=== PATIENT | male | born 1945 | race Caucasian/White ===

== ENCOUNTER 2021-09-23 08:57 | Outpatient (CLI) | payer MEDICARE, OTHER, SELFPAY ==
--- NOTE | ~2021-09-23 | CT_ITS ---
EXAMINATION: CT abdomen pelvis wo con EXAM DATE: 09/23/2021 09:18 INDICATION: Chronic kidney disease. TECHNIQUE: Spiral CT of the abdomen and pelvis was performed without contrast. Axial, coronal and sag ittal images were reviewed. The dose-length product (DLP) for this examination was 595.09 mGy-cm. T he exposure was tailored according to patient size (auto mA exposure control), and iterative reconstr uction (ASIR) was used as additional dose reduction technique. Comparison is made to prior examinatio n from 11/16/2018. FINDINGS: There is heterogeneous mass probably left adrenal origin measuring 6.7 x 5.7 cm (previously 4.6 x 4.2 cm in 2019. Surgical excision should be considered. There is no nephrolithiasis or hydrone phrosis. There is 1.6 cm left renal cyst. Nonspecific ill-defined regions of fat stranding in the deep aspect of the pelvis, presacral region a gain noted with mild progression. This could be infiltration with inflammatory cells but from unknown specific underlying etiology. Mild prostatomegaly. Small bilateral hydroceles. Some diffuse bladder wall thickening, could indicate chronic cystitis, unchanged. The spleen is upper limits of normal in size. Liver, pancreas, gallbladder are unremarkable. Gallblad jaron is unremarkable. No biliary obstruction. There is no retroperitoneal or pelvic lymphadenopathy. There is moderate scattered arteriosclerotic disease. Small umbilical fat-containing hernia. There are no findings to suggest appendicitis. The stomach and small bowel are unremarkable. There is expected amount of colonic stool. No free intraperitoneal gas. The heart is normal in size. T here are no pericardial or pleural effusions. The lung bases are unremarkable. There are no osteobl astic or osteolytic lesions identified. IMPRESSION: 1. Heterogeneous left adrenal 6.7 cm mass, interval increase in size. Benign and malignant adrenal t umor, or metastatic disease are considerations; consider surgical excision. 2. Progression of nonspecific ill-defined presacral, deep pelvic ill-defined fat stranding. 3. Mild prostatomegaly. Possible chronic cystitis. 4. No hydronephrosis. Reviewed, dictated and finalized at location A. 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 Heterogeneous left adrenal 6.7 cm mass, interval increase in size. Benign a nd malignant adrenal tumor, or metastatic disease are considerations; consider surgical excision. 2. Progression of nonspecific ill-defined presacral, deep pelvic ill-defined f at stranding. 3. Mild prostatomegaly. Possible chronic cystitis. 4. No hydronephrosis.
== END 2021-09-23 08:58 | disposition home or self-care (01) ==
PROVIDERS: PCP Family Medicine; Visit Provider Internal Medicine Nephrology
DX: N18.4 Chronic kidney disease, stage 4 (severe) (principal); E27.9 Disorder of adrenal gland, unspecified; N40.0 Benign prostatic hyperplasia without lower urinary tract symptoms
CPT/HCPCS: 74176

== ENCOUNTER 2023-05-30 10:41 | Outpatient (CLI) | payer MEDICARE, OTHER, SELFPAY ==
--- NOTE | ~2023-05-30 | MR_ITS ---
EXAMINATION: MR abdomen wo/w con INDICATION: Other specified disorders of the adrenal gland TECHNIQUE: Coronal SSFSE ARC, WATER:coronal LAVA-FLEX, Coronal 2D FIESTA FatSat, Axial SSFSE BH ARC, Axial 3D DualEcho BH, Axial SSFSE-IR, Axial DWI b=500, Axial 2D FIESTA FatSat, pre and dynamic postco ntrast Axial LAVA ARC, postcontrast Coronal In and Opposed phase LAVA FLEX COMPARISON: CT, 09/23/2021 CONTRAST: Multihance, 17 cc FINDINGS: The enlarged spleen measures 16 cm. The liver, pancreas, gallbladder, and right adrenal gla nd are normal. There is a 7.1 x 5.9 cm heterogeneous mass of the left adrenal gland. The mass demonst rates a ring of peripheral T1 hyperintensity and heterogeneous internal T2 signal. There is no apprec iable enhancement after contrast administration. Cysts of the kidneys measure up to 1.4 cm on the lef t. There are no pathologically enlarged abdominal lymph nodes. No dilated loops of bowel are evident. There is no free intraperitoneal fluid. IMPRESSION: 1. Left adrenal mass with slight increase in size which may be benign or malignant. In the absence of known malignancy, resection should be considered. 2. Splenomegaly. Reviewed, dictated and finalized at location B. IMPRESSION: 1. Left adrenal mass with slight increase in size which may be benign or malign ant. In the absence of known malignancy, resection should be considered. 2. Splenomegaly.
== END 2023-05-30 10:42 | disposition home or self-care (01) ==
PROVIDERS: PCP Family Medicine; Visit Provider Family Medicine
DX: E27.8 Other specified disorders of adrenal gland (principal); R16.1 Splenomegaly, not elsewhere classified
CPT/HCPCS: 74183; A9577

== ENCOUNTER 2023-06-15 16:17 | Outpatient (CLI) | payer MEDICARE, OTHER, SELFPAY ==
[2023-06-15 17:01] LABS: Hematocrit 30.2 % (42.0-52.0); Hemoglobin 9.5 g/dL (14.0-18.0); Immature Platelet Fraction Pct 11.3 % (0.9-11.2); Mean Corpuscular HGB Conc 31.5 g/dl (32-36); Mean Corpuscular Volume 104.9 fl (80-100); Mean Platelet Volume 11.3 fl (7.4-10.4); Platelet Count Result 77 k/mm3 (150-375); Red Blood Count 2.88 M/mm3 (4.6-6.20); Red Cell Distribution Width 15.4 % (11.5-14.5); White Blood Count 12.1 K/mm3 (4.5-10.0)
[2023-06-15 17:20] LABS: Alanine Aminotransferase 16 U/L (6-50); Albumin Level 4.5 g/dL (3.5-5.1); Alkaline Phosphatase 60 U/L (38-126); Anion Gap 9 mmol/L (8-16); Aspartate Amino Transferase 26 U/L (17-59); Bilirubin,Total 1.1 mg/dL (0.2-1.3); Blood Urea Nitrogen 23 mg/dL (9-20); Calcium 8.7 mg/dL (8.4-10.2); Carbon Dioxide 23 mmol/L (22-30); Chloride 105 mmol/L (98-107); Estimated Glomerular Filt Rate 26; Glucose 93 mg/dL (65-110); Lactate Dehydrogenase 327 U/L (120-246); Potassium 4.2 mmol/L (3.4-5.0); Sodium 137 mmol/L (137-145)
[2023-06-15 17:26] LABS: Iron 76 ug/dL (49-181)
[2023-06-15 17:28] LABS: Transferrin 164 mg/dL (206-381)
[2023-06-15 17:35] LABS: Band Neutrophils Percent 2 % (0-6); Basophils Absolute Manual 0.12 K/mm3 (0.0-0.1); Basophils Percent Manual 1 % (0-1); Lymphocytes Absolute Manual 1.57 K/mm3 (1.1-4.5); Monocytes Absolute Manual 1.69 K/mm3 (0.1-0.90); Monocytes Percent Manual 14 % (3-9); Neutrophils Absolute Manual 8.71 K/mm3 (1.3-6.7); Neutrophils Percent Manual 70 % (46-73); Platelet Estimate Decreased (Adequate); Schistocytes None Seen (NORMAL); Total Cells Counted 100
[2023-06-15 17:36] LABS: Anisocytosis 2+ (NORMAL); Hypochromasia 1+ (NORMAL); Percent Iron Saturation 30 % (20-50)
[2023-06-15 18:24] LABS: Folic Acid 9.1 ng/mL (2.76->20)
[2023-06-18 22:49] LABS: Methylmalonic Acid 272 nmol/L (87-318)
[2023-06-21 14:49] LABS: BCR/abl Prior Result Not Given
[2023-06-21 15:39] LABS: BCR/abl P190 Not Detected; BCR/abl P210 Not Detected
[2023-06-21 15:40] LABS: BCR/abl P190 Chg YES; BCR/abl P210 Chg YES
== END 2023-06-15 16:18 | disposition home or self-care (01) ==
LOC: ANHLAB 16:25
PROVIDERS: PCP Family Medicine; Visit Provider Internal Medicine Hematology & Oncology
DX: D72.829 Elevated white blood cell count, unspecified (principal); D64.9 Anemia, unspecified
CPT/HCPCS: 36415; 80053; 81206; 81207; 82607; 82728; 82746; 83540; 83550; 83615; 83921; 84466; 85025; 85055

== ENCOUNTER 2023-06-16 14:33 | Outpatient (CLI) | payer MEDICARE, OTHER, SELFPAY ==
[2023-06-16 15:11] LABS: Hematocrit 29.2 % (42.0-52.0); Hemoglobin 9.2 g/dL (14.0-18.0); Immature Platelet Fraction Pct 13.9 % (0.9-11.2); Mean Corpuscular HGB Conc 31.5 g/dl (32-36); Mean Corpuscular Hemoglobin 33.2 pg (26-34); Mean Corpuscular Volume 105.4 fl (80-100); Mean Platelet Volume 11.6 fl (7.4-10.4); Platelet Count Result 76 k/mm3 (150-375); Red Blood Count 2.77 M/mm3 (4.6-6.20); Red Cell Distribution Width 15.5 % (11.5-14.5); White Blood Count 12.5 K/mm3 (4.5-10.0)
[2023-06-16 15:32] LABS: Appearance Urine Clear (Clear); Bilirubin Urine Negative (Negative); Blood Urine 2+ (Negative); Color Urine Yellow (Yellow); Glucose Urine UA Negative (Negative); Ketones Urine Negative (Negative); Leukocyte Esterase Ur Negative LEU/UL (NEGATIVE); Nitrate Urine Negative (Negative); Protein Urine 2+ mg/dL (Negative); Specific Grav Ur >= 1.030 (1.001-1.035); Urobilinogen Urine 0.2 mg/dL (<2.0)
[2023-06-16 15:45] LABS: Creatinine Urine 203.5 mg/dL; Total Protein Urine Random 123 mg/dL
[2023-06-16 15:51] LABS: Albumin Level 4.4 g/dL (3.5-5.1); Anion Gap 11 mmol/L (8-16); Blood Urea Nitrogen 24 mg/dL (9-20); Calcium 8.9 mg/dL (8.4-10.2); Carbon Dioxide 24 mmol/L (22-30); Chloride 106 mmol/L (98-107); Estimated Glomerular Filt Rate 24; Glucose 106 mg/dL (65-110); Phosphorus 4.2 mg/dL (2.5-4.5); Sodium 141 mmol/L (137-145)
[2023-06-16 15:56] LABS: Parathyroid Intact 119.4 pg/mL (7.5-53.5)
[2023-06-16 16:14] LABS: Bacteria Urine None Seen /hpf; Hyaline Casts Urine Present /lpf; Need Manual Microscopic Reviewed; Non Pathogenic Casts >20; RBC Urine 0-2 /hpf (0-2); Squamous Epithelial Cell Urine Few /hpf (Few); WBC Urine 0-5 /hpf (0-3)
[2023-06-16 16:16] LABS: Erythrocyte Sedimentation Rate 30 mm/hr (0-20)
[2023-06-16 16:49] LABS: Add Urine Microscopic? YES
[2023-06-16 17:28] LABS: Complement C3 41 mg/dL (88-165)
[2023-06-16 17:53] LABS: Cortisol Random 9.48 ug/dL
[2023-06-19 15:04] LABS: Kappa\\Lambda Light Chains 2.26 (0.26-1.65)
[2023-06-21 17:17] LABS: Complement Total CH50 45 U/mL (31-60)
== END 2023-06-16 14:34 | disposition home or self-care (01) ==
LOC: ANHLAB 14:34
PROVIDERS: PCP Family Medicine; Visit Provider Internal Medicine Nephrology
DX: I48.91 Unspecified atrial fibrillation (principal); N18.4 Chronic kidney disease, stage 4 (severe)
CPT/HCPCS: 36415; 80069; 81001; 82533; 82570; 83883; 83970; 84156; 85027; 85055; 85652; 86038; 86160; 86162; 86334

== ENCOUNTER 2023-06-18 11:57 | Outpatient (NON) | payer MEDICARE, OTHER, SELFPAY ==
[2023-06-24 10:09] LABS: Protein,total, 24 Hr Ur 616 mg/24h
[2023-06-24 10:10] LABS: Albumin 19%; Creat 24 Hr 0.46; Pro/Creat Ratio 1333
[2023-06-24 10:11] LABS: ABN Prot Band 1 91
== END 2023-06-18 11:58 | disposition home or self-care (01) ==
PROVIDERS: PCP Family Medicine; Visit Provider Internal Medicine Nephrology
DX: N18.4 Chronic kidney disease, stage 4 (severe) (principal)
CPT/HCPCS: 86335

== ENCOUNTER 2023-06-30 02:39 | Day surgery (SDC) | payer MEDICARE, OTHER, SELFPAY ==
[2023-06-30] VITALS (7 sets, daily range): BP systolic 111–153; BP diastolic 62–88; PULSE 80–92; RESP 12–20; TEMP 36; O2SAT 99–100; BMI 25.4
--- NOTE | ~2023-06-30 | BM_ITS ---
EXAMINATION: CCL bone marrow asp w bx diag ORDER COMPLETED DATE: 06/30/2023 10:07 INDICATION: Leukocytosis TECHNIQUE: A time-out was performed to verify the patient's name, date of , and procedure to b e performed. The procedure including the risks and benefits was discussed with the patient. Risks dis cussed included bleeding, infection, nerve injury and allergic reaction. The patient understood the r isks and agreed to proceed. The skin overlying the right posterior iliac spine was prepped and draped in usual sterile fashion. Anesthetic was administered with 1% lidocaine subcutaneously. Moderate co nscious sedation was achieved with 50 mcg fentanyl IV. An 11 gauge needle was inserted into the right ilium with fluoroscopic guidance. Bone marrow was aspirated. An 8 gauge needle was then inserted int o the right ilium with fluoroscopic guidance. A core bone marrow biopsy was obtained. The needle was removed and the entry site was cleaned and dressed. There were no immediate complications. A total o f 154 fluoroscopic images were recorded. Fluoroscopy exposure time was 0.2 minutes. FINDINGS: Real-time fluoroscopy demonstrates the biopsy needle tip overlying the right posterior lonny c spine. IMPRESSION: 1. Successful fluoroscopic guided bone marrow aspiration. 2. Successful fluoroscopic guided bone marrow biopsy. Reviewed, dictated and finalized at location A.
[2023-06-30 08:13] LABS: Basophils Percent Auto 0.2 % (0.2-1.2); Eosinophils Absolute Auto 0.1 K/mm3 (0-0.3); Eosinophils Percent Auto 0.7 % (0-4.4); Hematocrit 30.7 % (42.0-52.0); Hemoglobin 9.9 g/dL (14.0-18.0); Immature Granulocyte Absolute 0.43 K/mm3 (0.00-0.031); Immature Granulocyte Percent A 3.4 % (0-0.5); Immature Platelet Fraction Pct 13.6 % (0.9-11.2); Lymphocytes Absolute Auto 3.17 K/mm3 (0.9-3.2); Lymphocytes Percent Auto 25.3 % (18.3-44.2); Mean Corpuscular HGB Conc 32.2 g/dl (32-36); Mean Corpuscular Hemoglobin 33.1 pg (26-34); Mean Corpuscular Volume 102.7 fl (80-100); Mean Platelet Volume 11.3 fl (7.4-10.4); Monocytes Absolute Auto 1.6 K/mm3 (0.1-0.6); Monocytes Percent Auto 12.5 % (2.6-8.5); Neutrophils Absolute Auto 7.2 K/mm3 (1.3-6.7); Neutrophils Percent Auto 57.9 % (45.5-73.1); Platelet Count Result 68 k/mm3 (150-375); Red Blood Count 2.99 M/mm3 (4.6-6.20); Red Cell Distribution Width 15.7 % (11.5-14.5); White Blood Count 12.5 K/mm3 (4.5-10.0)
[2023-06-30 08:22] LABS: INR 1.2; Prothrombin Time 16.3 Seconds (11.1-14.7)
[2023-06-30 08:42] LABS: Hypochromasia 1+ (NORMAL); Platelet Estimate Decreased (Adequate); Poikilocytosis 1+ (NORMAL)
[2023-06-30 08:43] LABS: Anisocytosis 1+ (NORMAL); Schistocytes Rare (NORMAL); Tear Drop Cells 1+ (NORMAL)
--- NOTE | 2023-06-30 09:26 | WPDMODSED ---
Moderate Sedation Note-Pt Data Patient Data Diagnosis: leukocytosis Present Complaint: leukocytosis Procedure to be performed/Plan: bone marrow biopsy Allergies Allergy/AdvReac Type Severity Reaction Status Date / Time No Known Allergies Allergy Verified 06/30/23 07:44 Home Medications Medication Instructions Recorded Confirmed Type levothyroxine 100 mcg tablet 100 mcg PO DAILY #90 tabs 05/18/23 06/30/23 Rx mecobalamin (vitamin B12) 500 mcg 500 mcg PO DAILY 06/16/23 06/30/23 History chewable tablet Sedation/Anesthesia: No previous sedation/anesthesia problems (including family history). [facility] Past Medical History Medical History Afib Anemia in chronic kidney disease GERD (gastroesophageal reflux disease) HTN (hypertension) Hypothyroidism Memory problem Stage 4 chronic kidney disease Surgical History Surgical History History of cardiac cath Family History Family History Mother Hypertension Family history of cardiovascular disease Father Family history of malignant neoplasm Social History Social History Smoking status: Never smoker Second hand tobacco smoke exposure: No Alcohol intake: current Alcohol use details: rare beer Substance use: never Substance use type: does not use Lack of Transportation: No Lack of Food: Never True Current Housing: I Have Housing Concerned About Future Housing: No Difficulty Paying Gas/Electric Bills: No Difficulty Paying for Meds: No Currently Unemployed: No Education: High School Diploma/GED Living arrangements: alone Occupation/Education: retired Gender identity (if verbalized by the patient): Male Sexual Orientation (if Verbalized by the Patient): Straight or Heterosexual Spiritual care concerns: No Mod Sed Physical Exam Physical Exam Pre Procedural Exam: Normal: Appearance, Eyes, Neck, Throat, Lungs, Heart Rate and Heart Rhythm Hours since solid foods: 9 Hours since liquid intake: 9 Mallampati Classification: class II Internal Medicine - PN: Obj Da Vital Signs Vital Signs: Vital Signs - 24 hr 06/30/23 07:55 Temperature 96.8 F L Pulse Rate 91 Respiratory Rate 16 Blood Pressure 152/69 H Pulse Oximetry 100 Oxygen Delivery Room Air Labs 06/30/23 08:01 Labs: Laboratory Results - last 24 hr 06/30/23 08:01 WBC 12.5 H RBC 2.99 L Hgb 9.9 L Hct 30.7 L MCV 102.7 H MCH 33.1 MCHC 32.2 RDW 15.7 H Plt Count 68 L MPV 11.3 H Immature Gran % (Auto) 3.4 H Neut % (Auto) 57.9 Lymph % (Auto) 25.3 Churchill % (Auto) 12.5 H Eos % (Auto) 0.7 Baso % (Auto) 0.2 Lymph # (Auto) 3.17 Churchill # (Auto) 1.6 H Eos # (Auto) 0.1 Baso # (Auto) 0.0 Abs Immat Gran (auto) 0.43 H Absolute Neuts (auto) 7.2 H Absolute Nucleated RBC 0.0 Nucleated RBC % 0.0 Platelet Estimate Decreased % Immature Plt Fraction 13.6 H Hypochromasia 1+ Poikilocytosis 1+ Anisocytosis 1+ Tear Drop Cells 1+ Schistocytes Rare PT 16.3 H INR 1.2 ASA Classification/Sedation ASA Classification/Sedation ASA Class: II Emergent: No Risks: Risks, benefits and alternatives explained and patient/family accepted plan for sedation. Patient re-evaluated immediately prior to sedation.
== END 2023-06-30 11:25 | disposition home or self-care (01) ==
PROVIDERS: PCP Family Medicine; Referring Provider Internal Medicine Hematology & Oncology; Visit Provider Radiology Diagnostic Radiology
DX: C92.10 Chronic myeloid leukemia, BCR/ABL-positive, not having achieved remission (principal); E03.9 Hypothyroidism, unspecified; I12.9 Hypertensive chronic kidney disease with stage 1 through stage 4 chronic kidney disease, or unspecified chronic kidney disease; N18.4 Chronic kidney disease, stage 4 (severe)
CPT/HCPCS: 36415; 38222; 85025; 85055; 85610; 88184; 88185; 88189; 88305; 88311; 88313; J1642; J2250; J3010; J7040

== ENCOUNTER 2023-07-04 10:22 | Outpatient (CLI) | payer MEDICARE, OTHER, SELFPAY ==
--- NOTE | ~2023-07-04 | US_ITS ---
EXAMINATION: US renal BI DATE: 07/04/2023 11:56 INDICATION: N18.4 - Chronic kidney disease, stage 4 (severe) TECHNIQUE: Multiple grayscale and Doppler ultrasound images of the kidneys were obtained. COMPARISON: MR abdomen 05/30/2023; CT abdomen 09/23/2021 and 11/16/2018. FINDINGS: The right kidney measures 10.0 x 5.7 x 5.2 cm. The left kidney measures 10.1 x 4.5 x 5.8 cm. The kidn eys demonstrate slightly increased parenchymal echogenicity, hypoechoic appearing renal pyramids, and and cortical thinning. 1.4 cm left upper pole simple cyst. There is no hydronephrosis. The bladder i s partially filled, with wall thickening, likely secondary to outlet obstruction. 2 mm echogenicity w ith twinkle artifact at the distal portion of the right UVJ. Incidental note of a 5.8 cm left adrenal mass. Prostatomegaly. Lobular hypoechoic areas adjacent to the prostate. IMPRESSION: Cortical atrophy and evidence of medical renal disease. No hydronephrosis. 2 mm calcification adjacent to the right UVJ may represent a small distal UVJ stone or bladder calcif ication. 5.8 cm left adrenal mass, prior recommendations are unchanged. Lobular hypoechoic areas adjacent to the prostate, may be related to prominent or inflamed seminal ve sicles and/or the nonspecific deep pelvic fat inflammatory change described in the prior CTs. Reviewed, dictated and finalized at [facility]. IMPRESSION: Cortical atrophy and evidence of medical renal disease. No hydronephrosis. 2 mm calcification adjacent to the right UVJ may represent a small distal UVJ s tone or bladder calcification. 5.8 cm left adrenal mass, prior recommendations are unchanged. Lobular hypoechoic areas adjacent to the prostate, may be related to prominent or inflamed seminal vesicles and/or the nonspecific deep pelvic fat inflammator y change described in the prior CTs.
== END 2023-07-04 10:23 | disposition home or self-care (01) ==
PROVIDERS: PCP Family Medicine; Visit Provider Internal Medicine Nephrology
DX: D35.02 Benign neoplasm of left adrenal gland (principal); N18.4 Chronic kidney disease, stage 4 (severe)
CPT/HCPCS: 76775

== ENCOUNTER 2023-08-19 15:14 | Outpatient (CLI) | payer MEDICARE, OTHER, SELFPAY ==
[2023-08-19 15:48] LABS: Hematocrit 30.9 % (42.0-52.0); Hemoglobin 9.8 g/dL (14.0-18.0); Immature Platelet Fraction Pct 10.1 % (0.9-11.2); Mean Corpuscular HGB Conc 31.7 g/dl (32-36); Mean Corpuscular Hemoglobin 32.8 pg (26-34); Mean Corpuscular Volume 103.3 fl (80-100); Mean Platelet Volume 11.7 fl (7.4-10.4); Platelet Count Result 107 k/mm3 (150-375); Red Blood Count 2.99 M/mm3 (4.6-6.20); Red Cell Distribution Width 16.7 % (11.5-14.5); White Blood Count 10.8 K/mm3 (4.5-10.0)
[2023-08-19 15:59] LABS: Albumin Level 4.6 g/dL (3.5-5.1); Anion Gap 10 mmol/L (8-16); Blood Urea Nitrogen 22 mg/dL (9-20); Calcium 9.3 mg/dL (8.4-10.2); Carbon Dioxide 25 mmol/L (22-30); Chloride 105 mmol/L (98-107); Estimated Glomerular Filt Rate 24; Glucose 83 mg/dL (65-110); Phosphorus 4.8 mg/dL (2.5-4.5); Potassium 4.7 mmol/L (3.4-5.0); Sodium 140 mmol/L (137-145)
[2023-08-19 16:01] LABS: Creatinine Urine 120.3 mg/dL; Total Protein Urine Random 131 mg/dL; Ur Ttl Prot Creatinine Ratio 1.09 mg/mg (0-0.20)
[2023-08-19 16:05] LABS: Complement C3 48 mg/dL (88-165)
[2023-08-19 16:10] LABS: Appearance Urine Clear (Clear); Bacteria Urine None Seen /hpf; Bilirubin Urine Negative (Negative); Blood Urine 1+ (Negative); Color Urine Yellow (Yellow); Glucose Urine UA Negative (Negative); Ketones Urine Negative (Negative); Leukocyte Esterase Ur Negative LEU/UL (NEGATIVE); Need Manual Microscopic Reviewed; Nitrate Urine Negative (Negative); Protein Urine 2+ mg/dL (Negative); Specific Grav Ur 1.018 (1.001-1.035); Squamous Epithelial Cell Urine None seen /hpf (Few); WBC Urine 0-5 /hpf (0-3); pH Urine 6.5 (5.0-9.0)
[2023-08-19 16:11] LABS: Add Urine Microscopic? YES
[2023-08-22 20:49] LABS: Complement Total CH50 50 U/mL (31-60)
== END 2023-08-19 15:15 | disposition home or self-care (01) ==
PROVIDERS: Visit Provider Internal Medicine Nephrology
DX: I48.91 Unspecified atrial fibrillation (principal); N18.32 Chronic kidney disease, stage 3b
CPT/HCPCS: 36415; 80069; 81001; 82570; 83970; 84156; 85027; 85055; 86160; 86162

== ENCOUNTER 2023-08-25 15:58 | Outpatient (CLI) | payer MEDICARE, OTHER, SELFPAY ==
[2023-09-01 14:53] LABS: Renin 2.02 ng/mL/h (0.25-5.82)
== END 2023-08-25 15:59 | disposition home or self-care (01) ==
PROVIDERS: PCP Family Medicine; Visit Provider Internal Medicine Nephrology
DX: E27.8 Other specified disorders of adrenal gland (principal)
CPT/HCPCS: 36415; 82088; 84244

== ENCOUNTER 2023-08-27 11:18 | Outpatient (NON) | payer MEDICARE, OTHER, SELFPAY ==
[2023-09-01 06:59] LABS: Metanephrine, Total Urine 496 mcg/24 h (224-832); Metanephrine, Urine 132 mcg/24 h (90-315); Normetanephrine, Urine 364 mcg/24 h (122-676)
== END 2023-08-27 11:19 | disposition home or self-care (01) ==
PROVIDERS: PCP Family Medicine; Visit Provider Internal Medicine Nephrology
DX: E27.8 Other specified disorders of adrenal gland (principal)
CPT/HCPCS: 82088; 82530; 83835

== ENCOUNTER 2024-09-19 15:36 | Outpatient (CLI) | payer MEDICARE, OTHER, SELFPAY ==
[2024-09-19 16:40] LABS: Albumin Level 4.6 g/dL (3.5-5.1); Anion Gap 8 mmol/L (4-12); Blood Urea Nitrogen 14 mg/dL (9-20); Calcium 9.1 mg/dL (8.4-10.2); Carbon Dioxide 30 mmol/L (22-30); Chloride 105 mmol/L (98-107); Estimated Glomerular Filt Rate 26; Glucose 93 mg/dL (65-110); Phosphorus 3.3 mg/dL (2.5-4.5); Potassium 3.6 mmol/L (3.4-5.0); Sodium 143 mmol/L (137-145)
[2024-09-19 18:28] LABS: Creatinine Urine 212.3 mg/dL; Total Protein Urine Random 101 mg/dL; Ur Ttl Prot Creatinine Ratio 0.48 mg/mg (0-0.20)
== END 2024-09-19 15:37 | disposition home or self-care (01) ==
LOC: ANHLAB 15:39
PROVIDERS: PCP Family Medicine; Visit Provider Internal Medicine Nephrology
DX: N18.32 Chronic kidney disease, stage 3b (principal); E11.22 Type 2 diabetes mellitus with diabetic chronic kidney disease; E21.1 Secondary hyperparathyroidism, not elsewhere classified
CPT/HCPCS: 36415; 80069; 82306; 82570; 84156

== ENCOUNTER 2024-12-27 09:06 | Outpatient (CLI) | payer MEDICARE, OTHER, SELFPAY ==
[2024-12-27 09:23] LABS: Blood Urea Nitrogen 14 mg/dL (8-26); Carbon Dioxide 23 mmol/L (22-30); Chloride 101 mmol/L (98-109); Estimated Glomerular Filt Rate 21; Glucose 93 mg/dL (70-105); Ionized Calcium (POC) 1.23 mmol/L (1.11-1.31); Potassium 3.6 mmol/L (3.5-4.9); Sodium 142 mmol/L (138-146)
[2024-12-27 09:25] LABS: Basophils Percent Auto 0.2 % (0.2-1.2); Eosinophils Absolute Auto 0.3 K/mm3 (0-0.3); Eosinophils Percent Auto 1.5 % (0-4.4); Hematocrit 35.4 % (42.0-52.0); Hemoglobin 11.7 g/dL (14.0-18.0); Immature Granulocyte Percent A 2.9 % (0-0.5); Immature Platelet Fraction Pct 12.1 % (0.9-11.2); Lymphocytes Absolute Auto 1.53 K/mm3 (0.9-3.2); Lymphocytes Percent Auto 7.5 % (18.3-44.2); Mean Corpuscular HGB Conc 33.1 g/dl (32-36); Mean Corpuscular Hemoglobin 31.5 pg (26-34); Mean Corpuscular Volume 95.2 fl (80-100); Mean Platelet Volume 11.3 fl (7.4-10.4); Monocytes Absolute Auto 6.7 K/mm3 (0.1-0.6); Monocytes Percent Auto 33.1 % (2.6-8.5); Neutrophils Absolute Auto 11.1 K/mm3 (1.3-6.7); Neutrophils Percent Auto 54.8 % (45.5-73.1); Platelet Count Result 91 k/mm3 (150-375); Red Blood Count 3.72 M/mm3 (4.6-6.20); Red Cell Distribution Width 16.8 % (11.5-14.5); White Blood Count 20.3 K/mm3 (4.5-10.0)
[2024-12-27 09:27] LABS: Platelet Estimate Decreased (Adequate)
[2024-12-27 09:28] LABS: Schistocytes None Seen
[2024-12-27 09:29] LABS: Anisocytosis 1+; Atypical Lymphocytes Present
--- OUTSIDE RECORDS SUMMARY | 2024-12-27 09:30 | XMS_ITS | Clinical Summary ---
Author Organization [facility] [employer] Address [address] [place] [address] Care Team Providers Care Blind Eyeletter Name Role Phone Kelvin Rosado MD Primary Care Provider [phone] Source Comments [facility] [employer]non-owned Affiliates and Associated Physician Practices is amultiple site organization consisting of ambulatory clinics and hospital sitesin [place], [place], [place] and [place]. This disclosure is being madepursuant to the Care Everywhere program and may not contain all information available regarding this patient. Last updated 18.[employer] Medications * Be aware that medications may not be up to date on this document. Alwaysverify current medications with the patient. levothyroxine (SYNTHROID) 75 MCG tablet 06/29/2016 Active warfarin (COUMADIN) 5 MG tablet 06/29/2016 Active digoxin (LANOXIN) 0.25 MG tablet 06/29/2016 Acti ve calcitriol (ROCALTROL) 0.25 MCG capsule 06/29/2016 Active omeprazole (PRILOSEC) 20 MG capsule 06/29/2016 Active metoprolol tartrate (LOPRESSOR) 25 MG tablet 06/29/2016 Active quinapril (ACCUPRIL) 40 MG tablet 06/29/2016 Active Social History Tobacco Use Types Packs/Day Years Used Date Smoking Tobacco: Never Alcohol Use Standard Drinks/Week Comments Yes 0 (1 standard drink = 0.6 oz pur e alcohol) Sex and Gender Information Value Date Recorded Sex Assigned at Not on file 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 Gender Identity Not on file Sexual Orientation Not on file Last Filed Vital Signs Vital Sign Reading Time Taken Comments Blood Pressure 115/86 09/28/2016 8:47 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 Pulse 81 09/28/2016 8:47 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 Temperature - - Respiratory Rate - - Oxygen Saturation 96% 09/28/2016 8:47 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 Inhaled Oxygen Concentration - - Weight 102.1 kg (225 lb) 09/28/2016 7:16 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 Height 185.4 cm (6' 1 ) 09/28/2016 7:16 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 Body Mass Index 29.69 09/28/2016 7:16 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 Plan of Treatment Health Maintenance Due Date Last Done Comments MEDICARE AWV 12 MONTHS 1945 DTAP/TDAP/TD VACCINES (1 - Tdap) 1962 PNEUMOCOCCAL VACCINE 50+ (1 of 1 - PCV) 1993 ZOSTER VACCINE (1 of 2) 1993 Respiratory Syncytial Virus (RSV) Vaccine Pt: or over 60 yrs (1 - 1-dose 75+ series) 2018 COVID-19 VACCINE ( - 2023-2 5 season) 2024 DEPRESSION SCREENING 09/12/2024 INFLUENZA VACCINE (Season Ended) 2025 HEPATITIS B VACCINE Aged Out No longe r eligible based on patient's age to complete this topic HIB VACCINE Aged Out No longer eligi ble based on patient's age to complete this topic HPV VACCINE Aged Out No longer eligi ble based on patient's age to complete this topic MENINGOCOCCAL (Group B) VACC INE SHARED DECISION-MAKING Aged Out No longer eligibl e based on patient's age to complete this topic MENINGOCOCCAL GROUPS A/C/Y/W VACCINE Aged Out No longer eligible b ased on patient's age to complete this topic Insurance [facility] MEDICARE Care Teams Blind Eyeletter Relationship Specialty Start Date End Date Kelvin Rosado MD [address] [facility] [place] [address] PCP - General 07/01/16
--- OUTSIDE RECORDS SUMMARY | 2024-12-27 09:30 | XMS_ITS | Clinical Summary ---
Author Organization [facility] [facility] Address [address] [place] [address] Care Team Providers Care Bait Tier Name Role Phone Pollo Lindquist MD Primary Care Provider [phone] Allergies No known active allergies Medications levothyroxine 88 mcg tablet Take 100 mcg by mouth daily. 06/11/2021 Active cyanocobalamin 1,000 mcg Tablet Take 500 mcg by mouth daily. Active Cholecalciferol , Vitamin D3, 50 mcg (2,000 unit) Capsule Take by mouth. Active ondansetron (ZOFRAN ODT) 8 mg Tablet, Rapid Dissolve Dissolve 1 tablet on top of tongue then swallow with saliva every 8 hours as needed for nausea or vomiting 5 Tablet 06/28/2024 Active galantamine (RAZADYNE ER) 8 mg Extended Release 24 hour capsule Take 8 mg by mouth daily. 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) from Last 3 Months Family History Relation Name Status Comments Brother Alive Daughter Alive Father Mother Social History Tobacco Use Types Packs/Day Years Used Date Smoking Tobacco: Never Smokeless Tobacco: Never Tobacco Cessation:Counseling Given: Not Answered Alcohol Use Standard Drinks/Week Comments Not Currently 0 (1 standard drink = 0.6 oz pur e alcohol) Sex and Gender Information Value Date Recorded Sex Assigned at Not on file 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 Gender Identity Not on file Sexual Orientation Not on file Last Filed Vital Signs Vital Sign Reading Time Taken Comments Blood Pressure 69/42 12/27/2024 9:29 AM CDT Pulse 90 12/27/2024 9:29 AM CDT Temperature 36.1 C (97 F) 12/27/2024 9:29 AM CDT Respiratory Rate 15 12/27/2024 9:29 AM CDT Oxygen Saturation 98% 12/27/2024 9:29 AM CDT Inhaled Oxygen Concentration - - Weight 79.5 kg (175 lb 3.2 oz) 12/27/2024 9:29 A M CDT Height 182.9 cm (6') 06/15/2023 3:12 PM CDT Body Mass Index 23.76 06/15/2023 3:12 PM CDT Plan of Treatment Upcoming Encounters Date Type Department Care Team (Late st Contact Info) Description 12/27/2024 9:45 AM CDT Office Visit [facility] Oncology and Hematology [facility] [address] [facility] [address] [place] [address] Kole Hermosillo MD [address] [facility] [address] [place] [address] Arrived Health Maintenance Due Date Last Done Comments DTAP/TDAP/TD VACCINES (1 - Tdap) 1962 PNEUMOCOCCAL VACCINE 50+ YEA RS (1 of 2 - PCV) 1962 Traditional Medicare (ACO) A nnual Wellness Visit 1962 ZOSTER VACCINE (1 of 2) 1962 RSV VACCINE (60+ or ) (1 - 1-dose 75+ series) 2018 INFLUENZA VACCINE Completed 07/19/2024, , 05/13/2021 Insurance MEDICARE PART A AND B [employer] [address] Care Teams Bait Tier Relationship Specialty Start Date End Date Pollo Lindquist MD [address] [place] [id number] PCP - General Family Practice 06/15/23
--- OUTSIDE RECORDS SUMMARY | 2024-12-27 09:31 | XMS_ITS | Referral Summary ---
Author Organization [facility] [address] Address [address] [place] [address] Care Team Providers Care Delivery Merchandiser Name Role Phone Pollo Lindquist MD Primary Care Provider Encounters Date Type Department Care Team Description 12/25/2024 Results Follow-Up [facility] Diagnostic [address] Advanced Medicine 6th [place] [address] [place] [address] Julia Mendoza MD PhD 12/21/2024 Telephone [facility] Memory Diagnostic [address] First Floor [address] [place] [address] Ana M Copeland, RMA Medication 12/19/2024 7:45 PM CDT Lab [facility] ([facility]) [address] [place] [phone] Memory loss 12/19/2024 4:00 PM CDT Office Visit [facility] [address] [place] [address] Medicine 6th [place] [address] [place] [address] Julia Mendoza MD PhD Alzheimer's disease (HCC) (Primary Dx) 12/07/2024 Orders Only [facility] Scanning, Provider 12/05/2024 Orders Only [facility] Scanning, Provider 10/23/2024 Telephone [facility] ([facility]) [address] [place] [address] Shayla Matos, 10/19/2024 Telephone [facility] [address] [facility] First Floor [address] [place] [address] NunoSaul napier, ROLLING MILL PLUGGER 10/17/2024 Telephone [facility] [address] [facility] First Floor [address] [place] [address] Ana M Copeland Nitin, A 10/17/[address] [facility] [place] [address] [facility] [address] Floor [address] [place] [address] Parr Sandravaina, A 09/28/2024 Orders Only [facility] Scanning, Provider from Last 3 Months Allergies No known active allergies Medications cyanocobalamin (Vitamin B-12) 500 mcg tabletIndicatio ns:Prevention of Vitamin B12 Deficiency Take 1 tablet (500 mcg total) by mouth daily Active cholecalciferol (D3-2000) 2000 unit capsule 3 Active levothyroxine (SYNTHROID) 100 mcg tablet Take 1 tablet (100 mcg total) by mouth daily 4 Active galantamine ER (RAZADYNE ER) 16 mg 24 hr capsuleIndicati ons:Mild to Moderate Alzheimer's Type Dementia Take 1 capsule (16 mg total) by mouth daily with breakfast 30 capsule 3 5 10/14/19 26 Active Active Problems Problem Noted Date Diagnosed Date 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 Because of the size of the mass and increase in size between 2019 in 2021, will refer patient to Urology for consideration of either adrenalectomy or percutaneous biopsy. Chronic atrial fibrillation 07/04/2018 Social History Tobacco Use Types Packs/Day Years Used Date Smoking Tobacco: Never Tobacco Cessation:Counseling Given: Not Answered Alcohol Use Standard Drinks/Week Comments Yes 0 (1 standard drink = 0.6 oz pur e alcohol) Sex and Gender Information Value Date Recorded Sex Assigned at Not on file Legal Sex Male 1:59 AM POLICE CHIEF DEPUTY Gender Identity Not on file Sexual Orientation Not on file Last Filed Vital Signs Vital Sign Reading Time Taken Comments Blood Pressure 155/87 12/19/2024 3:27 PM CDT Pulse 120 12/19/2024 3:27 PM CDT Temperature - - Respiratory Rate 14 11/03/2021 12:15 PM POLICE CHIEF DEPUTY Oxygen Saturation 96% 07/07/2021 1:05 PM CDT Inhaled Oxygen Concentration - - Weight 80.7 kg (178 lb) 12/19/2024 3:27 PM CDT Height 182.9 cm (6') 12/19/2024 3:27 PM CDT Body Mass Index 24.14 12/19/2024 3:27 PM CDT Plan of Treatment Not on file Procedures Procedure Name Priority Date/Time Associated Diagnosis Comments VITAMIN B12 Routine 12/19/2024 5:42 PM CDT Memory loss METHYLMALONIC ACID, SERUM Routine 12/19/2024 5:42 PM CDT Memory loss TSH Routine 12/19/2024 5:42 PM CDT Memory loss RPR Routine 12/19/2024 5:42 PM CDT Memory loss SCAN - LABS 12/07/2024 4:58 PM CDT SCAN - LABS 12/05/2024 4:58 PM CDT SCAN - LABS 09/28/2024 4:59 PM POLICE CHIEF DEPUTY from Last 3 Months Results * Methylmalonic acid, serum (12/19/2024 5:42 PM CDT) MMA 0.24 <=0.40 nmol/mL [place] ref Lab Comment: ADDITIONAL INFORMATION This test was developed and its performance characteristics determined by [facility] in a manner consistent with CLIA requirements. This test has not been cleared or approved by the U.S. Food and Drug Administration. Test Performed by: [address] [address] Wallpaper Hanger Helper: Elise Lacy Ph.D.; CLIA# [id number] Blood 12/19/2024 5:42 PM CDT 12/19/2024 7:56 PM CDT Narrative [facility] - 12/25/2024 8:48 AM CDT sent 1.0 ml serum us Julia Mendoza MD PhD LAB BLOOD ORDERABLE S Final Result Performing Organization Address City/[facility]/ZIP Co de Phone Number [facility] Department [place] [address] [place] ref Lab * RPR Blood (12/19/2024 5:42 PM CDT) Pathologist [facility] RPR Nonreactive Nonreactive Blood 12/19/2024 5:42 PM CDT 12/19/2024 6:32 PM CDT us Julia Mendoza MD PhD LAB MICROBIOLOGY - GENERAL ORDERABLES Final Result Performing Organization Address [facility] Co de Phone Number [facility] [place] [address] * TSH (12/19/2024 5:42 PM CDT) [facility] Thyroid Stimulating Hormone 2.04 0.30 - 4.20 mcIUnit/mL Blood 12/19/2024 5:42 PM CDT 12/19/2024 6:32 PM CDT us Julia Mendoza MD PhD LAB BLOOD ORDERABLE S Final Result Performing Organization Address City/[facility] Co de Phone Number [facility] [place] [address] * (ABNORMAL) Vitamin B12 (12/19/2024 5:42 PM CDT) Vitamin B12 1,806(H) 230 - 1,250 pg/mL Blood 12/19/2024 5:42 PM CDT 12/19/2024 6:32 PM CDT us Julia Mendoza MD PhD LAB BLOOD ORDERABLE S Final Result [facility] Department [place] [address] * SCAN - LABS (12/07/2024 4:58 PM CDT) us Provider Scanning Final Result * SCAN - LABS (12/05/2024 4:58 PM CDT) us Provider Scanning Final Result * SCAN - LABS (09/28/2024 4:59 PM POLICE CHIEF DEPUTY) us Provider Scanning Final Result from Last 3 Months Insurance [place] [address] [place] [address] MEDICARE [place]IC[place] [address] Care Teams Delivery Merchandiser Relationship Specialty Start Date End Date Pollo Lindquist MD [address] [place] [address] PCP - General Family Medicine 03/27/24
--- OUTSIDE RECORDS SUMMARY | 2024-12-27 09:31 | XMS_ITS | Encounter Summary ---
Author Organization [facility] [employer] Address [address] [place] [address] Care Team Providers Care Life Skills Trainer Name Role Phone Pollo Lindquist MD Primary Care Provider [phone] Encounter Details Date Type Department Care Team ([facility] Contact Info) Description 12/24/2024 Orders Only [facility] Oncology and [facility] [address] [place] [phone] Kole Hermosillo MD [address] [place] [address] [address] [place] [phone] 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) Social History Tobacco Use Types Packs/Day Years Used Date Smoking Tobacco: Never Smokeless Tobacco: Never Alcohol Use Standard Drinks/Week Comments Not Currently 0 (1 standard drink = 0.6 oz pur e alcohol) Sex and Gender Information Value Date Recorded Sex Assigned at Not on file Legal Sex Male 1:27 PM CUSTOMER SERVICE SUPERVISOR Gender Identity Not on file Sexual Orientation Not on file documented as of this encounter Plan of Treatment Upcoming Encounters Date Type Department Care Team (Late Contact Info) Description 12/27/2024 9:45 AM CDT Office Visit [facility] Oncology and Hematology [facility] [address] [place] [address] Kole Hermosillo MD [address] [place] [address] [address] [place] [phone] Arrived documented as of this encounter Visit Diagnoses Diagnosis 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
--- OUTSIDE RECORDS SUMMARY | 2024-12-27 09:31 | XMS_ITS | Encounter Summary ---
Author Organization [facility] Address [address] [place] [address] Phone Care Team Providers Care Quality Coordinator Name Role Phone Pollo Lindquist MD Primary Care Provider [phone] Encounter Details Date Type Department Care Team (Late st Contact Info) Description 12/25/2024 Results Follow-Up [facility] Memory Diagnostic Center [address] [facility] 6th [place] [address] [place] [address] Julia Mendoza MD PhD [address] [facility] [address] [place] [address] Social History Tobacco Use Types Packs/Day Years Used Date Smoking Tobacco: Never Alcohol Use Standard Drinks/Week Comments Yes 0 (1 standard drink = 0.6 oz pur e alcohol) Sex and Gender Information Value Date Recorded Sex Assigned at Not on file Legal Sex Male 1:59 AM KIER TENDER Gender Identity Not on file Sexual Orientation Not on file documented as of this encounter Miscellaneous Notes * Result Encounter Note - Julia Mendoza MD PhD - 12/25/2024 5:19 PM CDT Reversible dementia labs normal (B12, MMA, TSH, RPR) documented in this encounter Plan of Treatment Not on file documented as of this encounter Visit Diagnoses Not on filedocumented in this encounter Care Teams Quality Coordinator Relationship Specialty Start Date End Date Pollo Lindquist MD [address] [place] [address] PCP - General Family Medicine 03/27/24 documented as of this encounter
--- OUTSIDE RECORDS SUMMARY | 2024-12-27 09:31 | XMS_ITS | Encounter Summary ---
Author Organization [facility] Address [address] [place] [address] Care Team Providers Care Insurance Claim Approver Name Role Phone Kelvin Rosado MD Primary Care Provider [phone] Encounter Details Date Type Department Care Team (Late st Contact Info) Description 06/30/2023 Lab Requisition [facility] - Pathology Lab [address] [place] [address] Steve Kaba MD [address] [place] [address] Immunodeficiency, unspecified; Elevated white blood cell count, unspecified Social History Tobacco Use Types Packs/Day Years Used Date Smoking Tobacco: Never Alcohol Use Standard Drinks/Week Comments Yes 0 (1 standard drink = 0.6 oz pur e alcohol) Sex and Gender Information Value Date Recorded Sex Assigned at Not on file Legal Sex Male 5:41 PM SURVEILLANCE SENSOR OFFICER Gender Identity Not on file Sexual Orientation Not on file documented as of this encounter Plan of Treatment Not on file documented as of this encounter Procedures Procedure Name Priority Date/Time Associated Diagnosis Comments FLOW CYTOMETRY BONE MARROW Routine 06/30/2023 9:00 AM CDT Immunodeficiency, unspecified (CMS/HCC) Elevated white blood cell count, unspecified documented in this encounter Results * FLOW CYTOMETRY BONE MARROW (06/30/2023 9:00 AM CDT) Case Report Flow Cytometry Case: [id number] Authorizing Provider: Alek Kaba MD Collected: 06/30/2023 09:00 AM Ordering Location: [facility] Pathology Lab Received: 06/30/2023 12:29 PM Pathologist: Fidencio Espinoza MD Specimen: Bone Marrow 06/30/2023 2:02 PM [facility] PATHOLOGY LAB Final Diagnosis Bone marrow, flow cytometric immunophenotypic analysis: - No evidence of non-Hodgkin lymphoma or high-grade myeloid neoplasm. - See interpretation. Correlation with clinical findings, the concurrent bone marrow core biopsy, and relevant cytogenetic/molecu lar studies is required. 06/30/2023 2:02 PM [facility] PATH[facility] Flow Cytometry Interpretation Viability: 91% Lymphocytes (4%): B-cells: polytypic, kappa:lambda ratio 2:1 T-cells: no immunophenotypic aberrancy detected Blasts in the dimCD45 gate (2% all events) by CD34 co-expression are detected, 0.6% of all events, express CD13 and CD33. A bone marrow aspirate smear prepared from the flow cytometry specimen has been reviewed for quality audit representative purposes. 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 06/30/2023 2:02 PM [facility] Client Specimen ID # [id number] 06/30/2023 2:02 PM [facility] Number of markers 10 were performed. A-2 Flow CD10 A-3 Flow CD13 A-5 Flow CD20 A-1 Flow CD5 A-4 Flow CD19 A-6 Flow CD33 A-7 Flow CD34 A-8 Flow CD45 A-9 [place]+CD19+ A-10 Lambda+CD19+ 06/30/2023 2:02 PM [facility] Pathologist Location at [facility] 06/30/2023 2:02 PM [facility] PATH[facility] LAB Disclaimer Test performed at [facility], [address] [place] [address], [address]. *The established laboratory minimum viability is 70%. Values below the minimum may result in the failure to find an abnormal population of cells. This test was developed and its performance characteristics determined by the Flow Cytometry Laboratory. It has not been cleared by the [place] Food and Drug Administration (FDA). The FDA has determined that such clearance or approval is not necessary. This test is used for clinical purposes. It should not be regarded as investigational or for research. This laboratory is regulated under the Clinical Laboratory Improvement Amendments of 1998 (CLIA) as a qualified to perform high complexity clinical testing. 06/30/2023 2:02 PM CDT [facility] PATH[facility]Y [facility] Embedded Images 2:02 PM CDT [facility] Pathology/Cytolo gy BONE MARROW SPECIMEN / Unknown 06/30/2023 9:00 AM CDT 06/30/2023 12:29 PM CDT Steve Kaba MD LAB - PATHOLOGY/CYT OLOGY ORDERABLES Final Result Performing Organization Address City/[facility] de Phone Number [facility] PATHOLOGY LAB [address] [phone] documented in this encounter Visit Diagnoses Diagnosis Immunodeficiency, unspecified (HCC) Elevated white blood cell count, unspecified documented in this encounter Care Teams Insurance Claim Approver Relationship Specialty Start Date End Date Kelvin Rosado MD [address] [facility] [place] [address] PCP - General 07/01/16 documented as of this encounter
--- OUTSIDE RECORDS SUMMARY | 2024-12-27 09:31 | XMS_ITS | Clinical Summary ---
Author Organization [facility] [address] Address [address] [place] [address] Care Team Providers Care Commercial Collector Name Role Phone Pollo Lindquist MD Primary Care Provider [phone] Allergies No known active allergies Medications cyanocobalamin [...] 11/03/2021 Assessment & Plan (11/03/2021 4:49 PM HYDRATE CONTROL TENDER): Although there is no clear evidence of adrenal hormonal overproduction, as per review of systems or physical examination, will request laboratory hormonal workup, including 24 hour free metanephrines Also will check aldosterone, renin and cortisol levels. Because of the size of the mass and increase in size between 2018 in 2021, will refer patient to Urology for consideration of either adrenalectomy or percutaneous biopsy. Chronic atrial fibrillation 07/04/2018 Encounters Date Type Department Care Team Description 12/25/2024 Results Follow-Up [facility] [address] [facility] Advanced Medicine 6th [place] [address] [place] [address] Julia Mendoza MD PhD 12/21/2024 Telephone [facility] Diagnostic [place] [address] [facility] Floor [address] [place] [address] Ana M Copeland, RMA Medication 12/19/2024 7:45 PM CDT Lab [facility] ([facility]) [address] [place] [phone] Memory loss 12/19/2024 4:00 PM CDT Office Visit [facility] Memory Diagnostic [address] Medicine 6th [place] [address] [place] [address] Julia Mendoza MD PhD Alzheimer's disease (HCC) (Primary Dx) 12/07/2024 Orders Only [facility] Scanning, Provider 12/05/2024 Orders Only [facility] Scanning, Provider 10/23/2024 Telephone [facility] Radiology [facility] ([facility]) [address] [place] [address] Shayla Matos, RT 10/19/2024 Telephone [facility] Diagnostic [address] Floor [address] [place] [phone] Saul Reina, STATE FARM AGENT TEAM MEMBER 10/17/2024 Telephone [facility] Diagnostic [address] [place] [address] Ana M Copeland, RMA 10/17/2024 Telephone [facility] Diagnostic [address] [place] [address] Mario Alberto Parr, A 09/28/2024 Orders Only [facility] Scanning, Provider from Last 3 Months Medical History Medical History Date Comments Hypertension Hypertension Hypothyroidism Hypothyroidism Social History Tobacco Use Types Packs/Day Years Used Date Smoking Tobacco: Never Tobacco Cessation:Counseling Given: Not Answered Alcohol Use Standard Drinks/Week Comments Yes 0 (1 standard drink = 0.6 oz pur e alcohol) Sex and Gender Information Value Date Recorded Sex Assigned at Not on file Legal Sex Male 1:59 AM HYDRATE CONTROL TENDER Gender Identity Not on file Sexual Orientation Not on file Obstetrics History Last Filed Vital Signs Vital Sign Reading Time Taken Comments Blood Pressure 155/87 12/19/2024 3:27 PM CDT Pulse 120 12/19/2024 3:27 PM CDT Temperature - - Respiratory Rate 14 11/03/2021 12:15 PM HYDRATE CONTROL TENDER Oxygen Saturation 96% 07/07/2021 1:05 PM CDT Inhaled Oxygen Concentration - - Weight 80.7 kg (178 lb) 12/19/2024 3:27 PM CDT Height 182.9 cm (6') 12/19/2024 3:27 PM CDT Body Mass Index 24.14 12/19/2024 3:27 PM CDT Plan of Treatment Health Maintenance Due Date Last Done Comments Depression Screening 1945 Fall Risk Assessment 1945 Hepatitis B Screening 1961 Zoster Vaccine (1 of 2) 1993 DTaP/Tdap/Td Vaccine (1 - Tdap) 10/16/2004 5 Well Visit 65+ 2008 Pneumococcal vaccine 65+ Completed 017, 04/07/2016, 10/15/2008 Influenza Vaccine Completed 07/19/2024, , 06/14/2018, Additional history exists Procedures Procedure Name Priority Date/Time Associated Diagnosis Comments VITAMIN B12 Routine 12/19/2024 5:42 PM CDT Memory loss METHYLMALONIC ACID, SERUM Routine 12/19/2024 5:42 PM CDT Memory loss TSH Routine 12/19/2024 5:42 PM CDT Memory loss RPR Routine 12/19/2024 5:42 PM CDT Memory loss SCAN - LABS 12/07/2024 4:58 PM CDT SCAN - LABS 12/05/2024 4:58 PM CDT SCAN - LABS 09/28/2024 4:59 PM HYDRATE CONTROL TENDER from Last 3 Months Results * Methylmalonic acid, serum (12/19/2024 5:42 PM CDT) Pathologist [facility] MMA 0.24 <=0.40 nmol/mL [facility] Lab Comment: ADDITIONAL INFORMATION This test was developed and its performance characteristics determined by [facility] in a manner consistent with CLIA requirements. This test has not been cleared or approved by the U.S. Food and Drug Administration. Test Performed by: [place] [address] Assistant Track Coach: Elise Lacy Ph.D.; CLIA# [id number] Blood 12/19/2024 5:42 PM CDT 12/19/2024 7:56 PM CDT Narrative [facility] - 12/25/2024 8:48 AM CDT sent 1.0 ml serum Julia Mendoza MD PhD LAB BLOOD ORDERABLE S Final Result Performing Organization Address City/[facility]/ZIP Co de Phone Number [facility] Department [place] [address] [place] ref Lab * RPR Blood (12/19/2024 5:42 PM CDT) [facility] RPR Nonreactive Nonreactive Blood 12/19/2024 5:42 PM CDT 12/19/2024 6:32 PM CDT Julia Mendoza MD PhD LAB MICROBIOLOGY - GENERAL ORDERABLES Final Result [facility] [place] [address] * TSH (12/19/2024 5:42 PM CDT) [facility] Thyroid Stimulating Hormone 2.04 0.30 - 4.20 mcIUnit/mL Blood 12/19/2024 5:42 PM CDT 12/19/2024 6:32 PM CDT us Julia Mendoza MD PhD LAB BLOOD ORDERABLE S Final Result [facility] Department [place] [address] * (ABNORMAL) Vitamin B12 (12/19/2024 5:42 PM CDT) Vitamin B12 1,806(H) 230 - 1,250 pg/mL Blood 12/19/2024 5:42 PM CDT 12/19/2024 6:32 PM CDT us Julia Mendoza MD PhD LAB BLOOD ORDERABLE S Final Result Performing Organization Address [facility] Co de Phone Number [facility] [place] [address] * SCAN - LABS (12/07/2024 4:58 PM CDT) us Provider Scanning Final Result * SCAN - LABS (12/05/2024 4:58 PM CDT) us Provider Scanning Final Result * SCAN - LABS (09/28/2024 4:59 PM HYDRATE CONTROL TENDER) us Provider Scanning Final Result from Last 3 Months Insurance MEDICARE [employer] [place]IC[place] MEDICARE [facility] [facility] Care Teams Commercial Collector Relationship Specialty Start Date End Date Pollo Lindquist MD [address] [place] [address] PCP - General Family Medicine 03/27/24
--- OUTSIDE RECORDS SUMMARY | 2024-12-27 09:31 | XMS_ITS | Encounter Summary ---
Author Organization [facility] Address [address] [place] [address] Care Team Providers Care Coke Burner Name Role Phone Kelvin Rosado MD Primary Care Provider [phone] Encounter Details Date Type Department Care Team (Late st Contact Info) Description 07/04/2023 Lab Requisition [facility] - Pathology Lab [address] [place] [address] Steve Kaba MD [address] [place] [address] Illness, unspecified Social History Tobacco Use Types Packs/Day Years Used Date Smoking Tobacco: Never Alcohol Use Standard Drinks/Week Comments Yes 0 (1 standard drink = 0.6 oz pur e alcohol) Sex and Gender Information Value Date Recorded Sex Assigned at Not on file 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 Gender Identity Not on file Sexual Orientation Not on file documented as of this encounter Plan of Treatment Not on file documented as of this encounter Procedures Procedure Name Priority Date/Time Associated Diagnosis Comments BONE MARROW BIOPSY (STL) Routine 06/30/2023 9:00 AM CDT Illness, unspecified documented in this encounter Results * BONE MARROW BIOPSY (STL) (06/30/2023 9:00 AM CDT) Case Report Bone Marrow Patholog y Report Case: [id number] Authorizing Provider: Alek Kaba MD Collected: 06/30/2023 09:00 AM Ordering Location: [facility] Pathology Lab Received: 07/04/2023 09:15 AM Pathologist: Millicent Boothe MD Specimens: A) - Bone Marrow, Bone marrow core B) - Bone Marrow Clot, Bone marrow clot 07/04/2023 11:35 AM [facility] PATHOLOGY LAB Final Diagnosis Bone marrow, aspirate, clot section, and core biopsy: - Hypercellular marrow with trilineage dyspoiesis and monocytosis. - No increased blasts seen. - See description. Peripheral blood smear: - Bicytopenia and leukocytosis with absolute monocytosis. - See description. 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 The monocytic component appears mature with coarse chromatin and no nucleoli. Myeloblasts are not increased. This diagnosis would be supported by the lack of a bcr/abl translocation and mutations in SRSF2, TET2, and/or ASXL1. Genetic correlation is recommended. 07/04/2023 11:35 AM [facility] PATHOLOGY LAB Peripheral Smear Description RBC: macrocytic anemia. WBC: leukocytosis with absolute monocytosis, mature in appearance. Platelets: decreased in number. 07/04/2023 11:35 AM [facility] PATHOLOGY LAB Bone Marrow Aspirate Differential count (200 cells): 4% blasts, 39% maturing myeloid precursors, 11% erythroid progenitors, 45% monocytes, 1% eosinophils, 0% lymphocytes, 0% plasma cells. Specimen quality: adequate. Spicules: numerous. Trilineage Hematopoiesis: present. Myeloid:Erythroid ratio: elevated. Myeloid Maturation: dyspoietic, hypogranulation, abnormal segmentation. Erythroid Maturation: present. Megakaryocyte morphology: hypolobated. Storage iron (by special stain): decreased. Sideroblastic iron (by special stain): no ring sideroblasts. 07/04/2023 11:35 AM [facility] PATHOLOG[facility] LAB Bone Marrow Core Biopsy and Clot Section Description Specimen quality: adequate with 1 cm of evaluable marrow. Cellularity: 80-90% Myeloid maturation and localization: monocytic hyperplasia. Erythroid maturation and localization: architectural disarray. Megakaryocyte number: increased. Megakaryocyte distribution: small forms present. Lymphoid aggregates: absent. Bone trabeculae: normal. Blood vessels: normal. Plasma cells: normal. Clot section marrow particles: few. Clot section morphology: similar to core biopsy. 07/04/2023 11:35 AM [facility] PATHOLOG[facility] LAB Flow Cytometry Summary Bone marrow, flow cytometric immunophenotypic analysis ([id number]): - No evidence of non-Hodgkin lymphoma or high-grade myeloid neoplasm. - See interpretation. 07/04/2023 11:35 AM [facility] Clinical History Leukocytosis and absolute monocytosis. 07/04/2023 11:35 AM [facility] PATHOLOG[facility] LAB Materials Received Received are 20 slide(s) and 3 block(s) labeled [id number] along with a copy of the outside pathology report. [place] [address]. All original materials are returned to the referring institution, along with a copy of our final report. 07/04/2023 11:35 AM [facility] PATHOLOGY LAB Pathologist Location at [facility] 07/04/2023 11:35 AM [facility] PATHOLOGY LAB Disclaimer The performance characteristics of all immunohistochemical and indirect immunofluorescence stains (if any) cited in this report were determined by the Histopathology Laboratory of [facility]. Some of these tests were developed by our own laboratory and have not been cleared or approved by the US Food and Drug Administration. The FDA does not require this test to go through premarket FDA review. These tests are used for clinical purposes. They should not be regarded as investigational or for research. This laboratory is certified under the Clinical Laboratory Improvement Amendments (CLIA) as qualified to perform high complexity clinical laboratory testing. This case has been personally reviewed and interpreted by the attending (teaching) pathologist. 07/04/2023 11:35 AM [facility] PATHOLOGY LAB Embedded Images 07/04/2023 11:35 AM T [facility] PATHOLOGY LAB Pathology/Cytology BONE MARROW CLOT SPECIMEN / Unknown 06/30/2023 9:00 AM CDT 07/04/2023 9:15 AM CDT Miscellaneous samples (specimen) BONE MARROW CLOT SPECIMEN / Unknown 06/30/2023 9:00 AM CDT 07/04/2023 9:15 AM CDT Steve Kaba MD LAB - PATHOLOGY/CYT OLOGY ORDERABLES Final Result [facility] PATHOLOGY LAB [address] [place] [address] documented in this encounter Visit Diagnoses Diagnosis Illness, unspecified documented in this encounter Care Teams Coke Burner Relationship Specialty Start Date End Date Kelvin Rosado MD [address] [place] [address] PCP - General 07/01/16 documented as of this encounter
--- OUTSIDE RECORDS SUMMARY | 2024-12-27 09:31 | XMS_ITS | Clinical Summary ---
Author Organization [facility] Address [address] [place] [address] Phone Care Team Providers Care Machine Riveter Name Role Phone Leilani Talbot MD Primary Care Provider [phone] Allergies No known active allergies Medications calcitriol (ROCALTROL) 0.25 MCG capsule 07/27/2021 Active digoxin (LANOXIN) 250 MCG tablet 06/30/2021 Acti ve levothyroxine (SYNTHROID) 88 MCG tablet 08/18/2021 Active metoprolol tartrate (LOPRESSOR) 25 MG tablet 09/01/2021 Active quinapril (ACCUPRIL) 40 MG tablet 08/29/2021 Active warfarin (COUMADIN) 5 MG tablet 09/02/2021 Active Active Problems Problem Noted Date Diagnosed Date Chronic kidney disease, Stage IV (severe) 2021 Essential hypertension 09/16/2021 Chronic atrial fibrillation 07/04/2018 Immunizations Immunization Administration Dates Next Due Influenza TIV (IM) 05/13/2021 Family History Medical History Relation Comments Kidney disease Neg Hx Social History Tobacco Use Types Packs/Day Years Used Date Smoking Tobacco: Former Smokeless Tobacco: Never Alcohol Use Standard Drinks/Week Comments Yes 0 (1 standard drink = 0.6 oz pur e alcohol) rare Sex and Gender Information Value Date Recorded Sex Assigned at Male 08/27/2023 3:12 PM MST Legal Sex Male 8:52 AM MST Gender Identity Male 08/27/2023 3:12 PM MST Sexual Orientation Not on file Last Filed Vital Signs Vital Sign Reading Time Taken Comments Blood Pressure 126/72 09/16/2021 4:13 PM LABORER POLE 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 Pulse 72 09/16/2021 4:13 PM LABORER POLE CREW Temperature 36.2 C (97.1 F) 09/16/2021 4:13 PM LABORER POLE CREW Respiratory Rate - - Oxygen Saturation - - Inhaled Oxygen Concentration - - Weight 92.1 kg (203 lb) 09/16/2021 4:13 PM LABORER POLE CREW Height 185.4 cm (6' 1 ) 09/16/2021 4:13 PM LABORER POLE CREW Body Mass Index 26.78 09/16/2021 4:13 PM LABORER POLE CREW Plan of Treatment Health Maintenance Due Date Last Done Comments Pneumococcal PPSV23/PCV13 65 + Years / Low and Medium Risk (1 of 4 - PCV) 1993 Influenza Vaccine (Season Ended) 2025 05/13/20 21 Insurance [employer] MEDICARE SUPPLEMENT [facility] [id number] Care Teams Machine Riveter Relationship Specialty Start Date End Date Leilani Talbot MD [address] [place] [address] PCP - General Internal Medicine 09/03/21
[2024-12-27 09:58] LABS: Alanine Aminotransferase 15 U/L (6-50); Albumin Level 4.6 g/dL (3.5-5.1); Alkaline Phosphatase 63 U/L (38-126); Anion Gap 13 mmol/L (4-12); Aspartate Amino Transferase 28 U/L (17-59); Bilirubin,Total 1.5 mg/dL (0.2-1.3); Blood Urea Nitrogen 14 mg/dL (9-20); Calcium 9.2 mg/dL (8.4-10.2); Carbon Dioxide 23 mmol/L (22-30); Chloride 104 mmol/L (98-107); Estimated Glomerular Filt Rate 24; Glucose 93 mg/dL (65-110); Potassium 3.7 mmol/L (3.4-5.0); Sodium 140 mmol/L (137-145)
== END 2024-12-27 09:07 | disposition home or self-care (01) ==
LOC: ANHLAB 09:07
PROVIDERS: PCP Family Medicine; Visit Provider Internal Medicine Hematology & Oncology
DX: C93.10 Chronic myelomonocytic leukemia not having achieved remission (principal)
CPT/HCPCS: 36415; 80047; 80053; 85025; 85055

== ENCOUNTER 2025-02-06 15:05 | Outpatient (CLI) | payer MEDICARE, OTHER, SELFPAY ==
--- NOTE | ~2025-02-06 | CT_ITS ---
Non-contrast CT scan of the Abdomen and Pelvis Clinical indication: Hematuria Technique: 2.5 mm axial scans were obtained through the abdomen and pelvis without intravenous or or al contrast. Dose reduction technique was used on this scan by utilizing automated exposure control a nd iterative reconstruction technique. The dose-length product (DLP) was 313.01 mGy-cm. COMPARISON: 09/23/2021 Findings: Images through the lung bases reveal stable 3 mm left lower lobe pulmonary nodule. Probabl e minimal pericardial effusion. There are probable 2 or 3 distal right ureteral stones, measuring up to 4 mm in diameter, with mild t o moderate right hydroureteronephrosis. There are additional probable small bilateral nonobstructing renal stones. No left ureteral stone or left hydronephrosis. The liver, pancreas, gallbladder, and right adrenal gland appear normal. 7.0 x 6.3 cm left adrenal ma ss, with peripheral hypodensity and some areas of peripheral calcification with extensive central hyp odensity is stable to minimally increased from prior exam. Spleen is enlarged, measuring 14.7 cm in A P dimension. There are atherosclerotic calcifications of the aorta. . There is no evidence of bowel obstruction. There is somewhat amorphous, mildly hyperdense infiltrativ e change or soft tissue density in the presacral soft tissues (axial image 35 for example). There are multiple additional areas of similar increased density or infiltrative change in the pelvic fat bila terally. Enlarged inferior left pelvic lymph node measures 2.0 x 1.3 cm (axial image 142). Images through the pelvis were performed. There is no evidence of ascites or lymphadenopathy. Questio nable minimal urinary bladder wall thickening. Prostate gland minimally enlarged. Moderate to advanced degenerative spondylosis of lumbar spine noted. Impression: 2 or 3 distal right ureteral stones measuring up to 4 mm, with mild to moderate right hydroureteronep hrosis. Additional small bilateral nonobstructing renal stones. Mild interval progression of areas of soft tissue infiltration or other infiltrative change in the pr esacral soft tissues and pelvic fat bilaterally. Relatively slow progression suggests indolent proces s, however neoplastic process is not completely excluded. Clinical correlation required. New single enlarged or discrete intrapelvic lymph node measuring 2.0 x 1.3 cm. This also is indetermi abdi. Mild splenomegaly, of uncertain etiology. Large left adrenal mass, minimally increased from prior exam. Given minimal progression since 2022, t his is most likely a benign lesion, though precise etiology remains unclear. Possible mild cystitis. Reviewed, dictated and finalized at location M. Impression: 2 or 3 distal right ureteral stones measuring up to 4 mm, with mild to moderate right hydroureteronephrosis. Additional small bilateral nonobstructing renal stones. Mild interval progression of areas of soft tissue infiltration or other infiltr ative change in the presacral soft tissues and pelvic fat bilaterally. Relative ly slow progression suggests indolent process, however neoplastic process is no t completely excluded. Clinical correlation required. New single enlarged or discrete intrapelvic lymph node measuring 2.0 x 1.3 cm. This also is indeterminate. Mild splenomegaly, of uncertain etiology. Large left adrenal mass, minimally increased from prior exam. Given minimal pro gression since 2021, this is most likely a benign lesion, though precise etiolo gy remains unclear. Possible mild cystitis.
--- OUTSIDE RECORDS SUMMARY | 2025-02-06 15:11 | XMS_ITS | Encounter Summary ---
Author Organization [facility] Address [address] [place] [address] Care Team Providers Care Line Painting Machine Operator Name Role Phone Pollo Lindquist MD Primary Care Provider [phone] Encounter Details Date Type Department Care Team (Late st Contact Info) Description 02/05/2025 External Device Data STL ABSTRACTION Provider, Abstract NO ADDRESS ON FILE Social History Tobacco Use Types Packs/Day Years Used Date Smoking Tobacco: Never Smokeless Tobacco: Never Alcohol Use Standard Drinks/Week Comments Not Currently 0 (1 standard drink = 0.6 oz pur e alcohol) Sex and Gender Information Value Date Recorded Sex Assigned at Not on file 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 [address] [place] [address] documented as of this encounter Visit Diagnoses Not on filedocumented in this encounter Care Teams Line Painting Machine Operator Relationship Specialty Start Date End Date Pollo Lindquist MD [address] [place] [phone] PCP - General Family Practice 06/15/23 documented as of this encounter
--- OUTSIDE RECORDS SUMMARY | 2025-02-06 15:11 | XMS_ITS | Clinical Summary ---
Author Organization [facility] [employer] Address [address] [place] [address] Care Team Providers Care Service Officer Name Role Phone Kelvin Rosado MD Primary Care Provider [phone] Source Comments [facility] [employer],non-owned Affiliates and Associated Physician Practices is amultiple site organization consisting of ambulatory clinics and hospital sitesin [place], [place], [place] and [place]. This disclosure is being madepursuant to the Care Everywhere program and may not contain all information available regarding this patient. 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 Gender Identity Not on file Sexual Orientation Not on file Last Filed Vital Signs Vital Sign Reading Time Taken Comments Blood Pressure 115/86 09/28/2016 8:47 AM NECK PINNER Pulse 81 09/28/2016 8:47 AM NECK PINNER Temperature - - Respiratory Rate - - Oxygen Saturation 96% 09/28/2016 8:47 AM NECK PINNER Inhaled Oxygen Concentration - - Weight 102.1 kg (225 lb) 09/28/2016 7:16 AM NECK PINNER Height 185.4 cm (6' 1) 09/28/2016 7:16 AM NECK PINNER Body Mass Index 29.69 09/28/2016 7:16 AM NECK PINNER Plan of Treatment Health Maintenance Due Date [...] patient's age to complete this topic Insurance [facility] MEDICARE Care Teams Service Officer Relationship Specialty Start Date End Date Kelvin Rosado MD [address] [facility] [place] [address] PCP - General 07/01/16
--- OUTSIDE RECORDS SUMMARY | 2025-02-06 15:11 | XMS_ITS | Referral Summary ---
Author Organization [facility] [address] Address [address] [place] [address] Care Team Providers Care Armature Rewinder Name Role Phone Pollo Lindquist MD Primary Care Provider [phone] Encounters Date Type Department Care Team Description 01/13/2025 Results Follow-Up [facility] at [address] [phone] Shilpa Voss, JORGE Urine culture Urine, clean voided 01/12/2025 9:28 AM CDT - 01/12/2025 11:59 PM CDT Hospital Encounter [id number] [place], [place] [phone] Hematuria, unspecified type Discharge Disposition: Discharge to home or self care 01/12/2025 9:00 AM CDT Office Visit [facility] Medical [facility] at [address] [phone] Suzanne Askew NP Hematuria, unspecified type (Primary Dx) 12/25/2024 Results Follow-Up [facility] [place] [address] [facility] 6th [place] [address] [place] [address] Julia Mendoza MD PhD RPR Blood, TSH, Methylmalonic acid, serum, Vitamin B12 12/21/2024 Telephone [facility] [place] [address] [facility] [address] [place] [address] Ana M Copeland, RMA Medication 12/19/2024 7:45 PM CDT Lab [facility] Advanced [facility] [address] [place] [address] Memory loss 12/19/2024 4:00 PM CDT Office Visit [facility] [address] [facility] 6th [place] [address] [place] [address] Julia Mendoza MD PhD Moderate late onset Alzheimer's dementia without behavioral disturbance, psychotic disturbance, mood disturbance, or anxiety (HCC) (Primary Dx) 12/07/2024 Orders Only [facility] Scanning, Provider 12/05/2024 Orders Only [facility] Scanning, Provider from Last 3 Months [...] 30 capsule 3 5 10/14/19 26 Active citalopram (CeleXA) 10 mg tablet 5 Active QUEtiapine (SEROquel) 50 mg tablet Take 1 tablet (50 mg total) by mouth nightly at bedtime 5 Active polyethylene glycol (MIRALAX) 17 gram/dose bulk powder Take 17 g by mouth daily Active Active Problems Problem Noted Date Diagnosed Date 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 Assessment & Plan (11/03/2021 4:49 PM PROSTHETIC AIDES TEACHER): Although there is no clear evidence of [...] on file Legal Sex Male 1:59 AM PROSTHETIC AIDES TEACHER Gender Identity Not on file Sexual Orientation Not on file Last Filed Vital Signs Vital Sign Reading Time Taken Comments Blood Pressure 116/49 01/12/2025 9:04 AM CDT Pulse 56 01/12/2025 9:04 AM CDT Temperature 36 C (96.8 F) 01/12/2025 9:04 AM CDT Respiratory Rate 18 01/12/2025 9:04 AM CDT Oxygen Saturation 97% 01/12/2025 9:04 AM CDT Inhaled Oxygen Concentration - - Weight 81.2 kg (179 lb) 01/12/2025 9:04 AM CDT Height 182.9 cm (6') 01/12/2025 9:04 AM CDT Body Mass Index 24.28 01/12/2025 9:04 AM CDT Plan of Treatment Not on file Procedures Procedure Name Priority Date/Time Associated Diagnosis Comments URINE CULTURE Routine 01/12/2025 9:28 AM CDT Hematuria, unspecified type POCT URINALYSIS DIPSTICK Routine 01/12/2025 9:15 AM CDT Hematuria, unspecified type VITAMIN B12 Routine 12/19/2024 5:42 PM CDT Memory loss METHYLMALONIC ACID, SERUM Routine 12/19/2024 5:42 PM CDT Memory loss TSH Routine 12/19/2024 5:42 PM CDT Memory loss RPR Routine 12/19/2024 5:42 PM CDT Memory loss SCAN - LABS 12/07/2024 4:58 PM CDT SCAN - LABS 12/05/2024 4:58 PM CDT from Last 3 Months Results * Urine culture Urine, clean voided (01/12/2025 9:28 AM CDT) Report Final Report: Less than 100,000 colonies/mL (clinically insignificant growth based on current clinical standards) Comment:Testing performed by : [facility], [address] [place]., [address] Organism (CLINICALLY INSIGNIFICANT GROWTH AS[facility]AD Urine, clean voided 01/12/2025 9:28 AM CDT 01/12/2025 4:01 PM CDT Narrative [facility] - 01/13/2025 5:35 PM CDT Please run sensitivity. Testing performed by [facility] ([phone]) Suzanne Askew NP LAB MICROBIOLOGY - GENERAL ORDERABLES Final Result [facility] [address] Department [place] [address] * (ABNORMAL) POCT urinalysis dipstick (01/12/2025 9:15 AM CDT) Color, Urine, POC Yellow Clarity, ur, POC Clear Clear Glucose, ur, POC Negative Negative Bilirubin, ur, POC Negative Negative Ketones, ur, POC Negative Negative Specific Dawson, POC 1.030 1.003 - 1.030 Blood, ur, POC Moderate(A) Negative pH, ur, POC 5.5 5.0 - 8.0 Protein, ur, POC 100.(A) Negative Urobilinogen, urine, POC 0.2 0.2 - 1.0 mg/dL Nitrite, ur, POC Negative Negative Leukocytes, ur, POC Negative Negative Lot Number 0 Urine 01/12/2025 9:15 AM CDT Suzanne Askew NP POINT OF CARE TEST ORDERAB LES Final Result * Methylmalonic acid, serum (12/19/2024 5:42 PM CDT) MMA 0.24 <=0.40 nmol/mL [facility] Comment: ADDITIONAL INFORMATION This test was developed and its performance characteristics determined by [facility] in a manner consistent with CLIA requirements. This test has not been cleared or approved by the U.S. Food and Drug Administration. Test Performed by: [facility] [place] [address] Slitter Service And Setter: Elise Lacy Ph.D.; CLIA# [id number] Blood 12/19/2024 5:42 PM CDT 12/19/2024 7:56 PM CDT Narrative [facility] - 12/25/2024 8:48 AM CDT sent 1.0 ml serum Julia Mendoza MD PhD LAB BLOOD ORDERABLE S Final Result Performing Organization Address [facility] Co de Phone Number [facility] [place] [address] [facility] * RPR Blood (12/19/2024 5:42 PM CDT) RPR Nonreactive Nonreactive Blood 12/19/2024 5:42 PM CDT 12/19/2024 6:32 PM CDT Julia Mendoza MD PhD LAB MICROBIOLOGY - GENERAL ORDERABLES Final Result Performing Organization Address City/[facility] Co de Phone Number [facility] [address] * TSH (12/19/2024 5:42 PM CDT) Thyroid Stimulating Hormone 2.04 0.30 - 4.20 mcIUnit/mL Blood 12/19/2024 5:42 PM CDT 12/19/2024 6:32 PM CDT Julia Mendoza MD PhD LAB BLOOD ORDERABLE S Final Result [facility] Department [place] [address] * (ABNORMAL) Vitamin B12 (12/19/2024 5:42 PM CDT) Vitamin B12 1,806(H) 230 - 1,250 pg/mL Blood 12/19/2024 5:42 PM CDT 12/19/2024 6:32 PM CDT Julia Mendoza MD PhD LAB BLOOD ORDERABLE S Final Result Performing Organization Address [facility] Co de Phone Number [facility] Department [place] [address] * SCAN - LABS (12/07/2024 4:58 PM CDT) Provider Scanning Final Result * SCAN - LABS (12/05/2024 4:58 PM CDT) Provider Scanning Final Result from Last 3 Months [place] [address] MEDICARE [facility] MEDICARE [facility] MEDICARE [facility] Care Teams Armature Rewinder Relationship Specialty Start Date End Date Pollo Lindquist MD [address] [place] [address] PCP - General Family Medicine 03/27/24
--- OUTSIDE RECORDS SUMMARY | 2025-02-06 15:11 | XMS_ITS | Clinical Summary ---
Author Organization [facility] Geovany hong Bettye Address [address] [place] [address] Care Team Providers Care Micro Computer Specialist Name Role Phone Pollo Lindquist MD Primary Care Provider [phone] Allergies No known active allergies Medications levothyroxine [...] Encounters Date Type Department Care Team Description 02/05/2025 External Device Data STL ABSTRACTION Provider, Abstract 02/04/2025 Orders Only [facility] Oncology and Hematology - [place] [address] [place] [address] Kole Hermosillo MD 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) 01/31/2025 External Device Data STL ABSTRACTION Provider, Abstract 01/30/2025 External Device Data STL ABSTRACTION Provider, Abstract 01/29/2025 External Device Data STL ABSTRACTION Provider, Abstract 01/23/2025 Orders Only [facility] Oncology and Hematology - [place] [address] [place] [address] Kole Hermosillo MD 01/22/2025 Orders Only [facility] Oncology and Hematology - [place] [address] [place] [phone] Kole Hermosillo MD 01/21/2025 Orders Only [facility] Oncology and Hematology - [place] [address] [place] [phone] Kole Hermosillo MD 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) 01/07/2025 Orders Only [facility] Oncology and Hematology - [address] [place] [phone] Kole Hermosillo MD 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) 12/27/2024 9:45 AM CDT Office Visit [facility] Oncology and Hematology [facility] [address] [place] [phone] Kole Hermosillo MD 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) (Primary Dx) 12/24/2024 Orders Only [facility] Oncology and Hematology [address] [place] [address] Kole Hermosillo MD 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) 12/10/2024 Orders Only [facility] Oncology and Hematology - [address] [place] [address] Kole Hermosillo MD 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) 11/28/2024 External Device Data STL ABSTRACTION Provider, Abstract 11/17/2024 External Device Data STL ABSTRACTION Provider, Abstract 11/16/2024 External Device Data STL ABSTRACTION Provider, Abstract 11/12/2024 Orders Only [facility] Oncology and Hematology [address] [place] [phone] Kole Hermosillo MD Chronic myelomonocytic leukemia not [...] on file Legal Sex Male 1:27 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 Gender Identity Not on file Sexual Orientation Not on file Last Filed Vital Signs Vital Sign Reading Time Taken Comments Blood Pressure 110/67 12/27/2024 9:31 AM CDT Pulse 90 12/27/2024 9:29 AM [...] Description 02/19/2025 2:00 PM CDT Office Visit [facility] Oncology and Hematology - [place] [address] [place] [address] [facility] [address] [place] [address] Kole Hermosillo MD [address] [facility] [address] [place] [address] Health Maintenance Due Date Last Done Comments DTAP/TDAP/TD VACCINES (1 - Tdap) 1964 PNEUMOCOCCAL VACCINE 50+ YEA RS (1 of 2 - PCV) 1962 ZOSTER VACCINE (1 of 2) 1962 RSV VACCINE (60+ or ) (1 - 1-dose 75+ series) 2018 INFLUENZA VACCINE Completed 07/19/2024, , 05/13/2021 Procedures Procedure Name Priority Date/Time Associated Diagnosis Comments BASIC METABOLIC PANEL Routine 01/21/2025 3:31 PM CDT CBC WITH AUTODIFFERENTIAL Routine 2024 3:31 PM CDT COMPREHENSIVE METABOLIC PANEL Routine 01/21/2025 10:05 AM CDT from Last 3 Months Results * BASIC METABOLIC PANEL (01/21/2025 3:31 PM CDT) Blood Kole Hermosillo MD CHEMISTRY ORDERABLES Final Resu lt * CBC WITH AUTODIFFERENTIAL (01/21/2025 3:31 PM CDT) Blood us Kole Hermosillo MD HEMATOLOGY ORDERABLES Final Res ult * COMPREHENSIVE METABOLIC PANEL (01/21/2025 10:05 AM CDT) Blood us Kole Hermosillo MD CHEMISTRY ORDERABLES Final Resu lt from Last 3 Months Insurance MEDICARE PART A AND B [facility] Care Teams Micro Computer Specialist Relationship Specialty Start Date End Date Pollo Lindquist MD [address] [place] [phone] PCP - General Family Practice 06/15/23
--- OUTSIDE RECORDS SUMMARY | 2025-02-06 15:11 | XMS_ITS | Encounter Summary ---
Author Organization [facility] Address [address] [place] [address] Care Team Providers Care Money Room Supervisor Name Role Phone Kelvin Rosado MD Primary Care Provider [phone] Encounter Details Date Type Department Care Team (Late st Contact Info) Description 06/30/2023 Lab Requisition [facility] - Pathology Lab [address] [place] [address] Steve Kaba MD [address] [place] [address] Immunodeficiency, unspecified; Elevated white blood cell count, unspecified Social History Tobacco Use Types Packs/Day Years Used Date Smoking Tobacco: Never Alcohol Use Standard Drinks/Week Comments Yes 0 (1 standard drink = 0.6 oz pur e alcohol) Sex and Gender Information Value Date Recorded Sex Assigned at Not on file 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 - See interpretation. Correlation with clinical findings, the concurrent bone marrow core biopsy, and relevant cytogenetic/molecu lar studies is required. 06/30/2023 2:02 PM [facility] at 1402 CDT Flow Cytometry Interpretation Viability: 91% Lymphocytes (4%): B-cells: polytypic, kappa:lambda ratio 2:1 T-cells: no immunophenotypic aberrancy detected Blasts in the dimCD45 gate (2% all events) by CD34 co-expression are detected, 0.6% of all events, express CD13 and CD33. A bone marrow aspirate smear prepared from the flow cytometry specimen has been reviewed for quality audit representative purposes. 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 06/30/2023 2:02 PM [facility] Client Specimen ID # [id number] 06/30/2023 2:02 PM [facility] Number of markers 10 were performed. A-2 Flow CD10 A-3 Flow CD13 A-5 Flow CD20 A-1 Flow CD5 A-4 Flow CD19 A-6 Flow CD33 A-7 Flow CD34 A-8 Flow CD45 A-9 [place]+CD19+ A-10 Lambda+CD19+ 06/30/2023 2:02 PM [facility] Pathologist Location at [facility] 06/30/2023 2:02 PM [facility] Disclaimer Test performed at [facility], [address] [place] [address], [address]. *The established laboratory minimum viability is 70%. [...] complexity clinical testing. 06/30/2023 2:02 PM CDT [facility] Embedded Images 2:02 PM CDT [facility] Pathology/Cytolo gy BONE MARROW SPECIMEN / Unknown 06/30/2023 9:00 AM CDT 06/30/2023 12:29 PM CDT Steve Kaba MD LAB - PATHOLOGY/CYT OLOGY ORDERABLES Final Result Performing Organization Address City/[facility] de Phone Number [facility] [address] [phone] documented in this encounter Visit Diagnoses Diagnosis Immunodeficiency, unspecified (HCC) Elevated white blood cell count, unspecified documented in this encounter Care Teams Money Room Supervisor Relationship Specialty Start Date End Date Kelvin Rosado MD [address] [facility] [place] [address] PCP - General 07/01/16 documented as of this encounter
--- OUTSIDE RECORDS SUMMARY | 2025-02-06 15:11 | XMS_ITS | Encounter Summary ---
Author Organization [facility] Address [address] [place] [address] Phone Care Team Providers Care Systems Engineer Name Role Phone Pollo Lindquist MD Primary Care Provider [phone] Encounter Details Date Type Department Care Team (Late st Contact Info) Description 12/25/2024 Results Follow-Up [facility] [address] [facility] [address] 6th [place] [address] [place] [address] Julia Mendoza MD PhD [address] [facility] [address] [place] [address] RPR Blood, TSH, Methylmalonic acid, serum, Vitamin B12 Social History Tobacco Use Types Packs/Day Years Used Date Smoking Tobacco: Never Alcohol Use Standard Drinks/Week Comments Yes 0 (1 standard drink = 0.6 oz pur e alcohol) Sex and Gender Information Value Date Recorded Sex Assigned at Not on file 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
--- OUTSIDE RECORDS SUMMARY | 2025-02-06 15:11 | XMS_ITS | Encounter Summary ---
Author Organization [facility] Address [address] [place] [address] Care Team Providers Care Bar Porter Name Role Phone Pollo Lindquist MD Primary Care Provider [phone] Encounter Details Date Type Department Care Team (Late st Contact Info) Description 01/13/2025 Results Follow-Up 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
--- OUTSIDE RECORDS SUMMARY | 2025-02-06 15:11 | XMS_ITS | Encounter Summary ---
Author Organization [facility] Address [address] [place] [address] Care Team Providers Care Poacher Operator Name Role Phone Kelvin Rosado MD Primary Care Provider [phone] Encounter Details Date Type Department Care Team (Late st Contact Info) Description 07/04/2023 Lab Requisition [facility] - Pathology Lab [address] [place] [address] Steve Kaba MD [address] [place] [address] Illness, unspecified Social History Tobacco Use Types Packs/Day Years Used Date Smoking Tobacco: Never Alcohol Use Standard Drinks/Week Comments Yes 0 (1 standard drink = 0.6 oz pur e alcohol) Sex and Gender Information Value Date Recorded Sex Assigned at Not on file 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 - No increased blasts seen. - See description. Peripheral blood smear: - Bicytopenia and leukocytosis with absolute monocytosis. - See description. 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 The monocytic component appears mature with coarse chromatin and no nucleoli. Myeloblasts are not increased. This diagnosis would be supported by the lack of a bcr/abl translocation and mutations in SRSF2, TET2, and/or ASXL1. Genetic correlation is recommended. 07/04/2023 11:35 AM [facility] Peripheral Smear Description RBC: macrocytic anemia. WBC: leukocytosis with absolute monocytosis, mature in appearance. Platelets: decreased in number. 07/04/2023 11:35 AM [facility] Bone Marrow Aspirate Differential count [...] stain): no ring sideroblasts. 07/04/2023 11:35 AM [facility] Bone Marrow Core Biopsy and [...] similar to core biopsy. 07/04/2023 11:35 AM [facility] Flow Cytometry Summary Bone marrow, flow cytometric immunophenotypic analysis ([id number]): - No evidence of non-Hodgkin lymphoma or high-grade myeloid neoplasm. - See interpretation. 07/04/2023 11:35 AM [facility] Clinical History Leukocytosis and absolute monocytosis. 07/04/2023 11:35 AM [facility] Materials Received Received are 20 slide(s) and 3 block(s) labeled [id number] along with a copy of the outside pathology report. [place] [address]. All original materials are returned to the referring institution, along with a copy of our final report. 07/04/2023 11:35 AM [facility] LAB Pathologist Location at [facility] 07/04/2023 11:35 AM [facility] Disclaimer The performance characteristics of all immunohistochemical and indirect immunofluorescence stains (if any) cited in this report were determined by the Histopathology Laboratory of [facility]. Some of these tests were developed [...] the attending (teaching) pathologist. 07/04/2023 11:35 AM [facility] Embedded Images 07/04/2023 11:35 AM [facility] Pathology/Cytology BONE MARROW CLOT SPECIMEN / Unknown 06/30/2023 9:00 AM CDT 07/04/2023 9:15 AM CDT Miscellaneous samples (specimen) BONE MARROW CLOT SPECIMEN / Unknown 06/30/2023 9:00 AM CDT 07/04/2023 9:15 AM CDT Steve Kaba MD LAB - PATHOLOGY/CYT OLOGY ORDERABLES Final Result [facility] [address] [place] [address] documented in this encounter Visit Diagnoses Diagnosis Illness, unspecified documented in this encounter Care Teams Poacher Operator Relationship Specialty Start Date End Date Kelvin Rosado MD [address] [place] [address] PCP - General 07/01/16 documented as of this encounter
--- OUTSIDE RECORDS SUMMARY | 2025-02-06 15:11 | XMS_ITS | Clinical Summary ---
Author Organization [facility] [address] Address [address] [place] [address] Care Team Providers Care Counter Sales Representative Name Role Phone Pollo Lindquist MD Primary Care Provider [phone] Allergies No known active allergies Medications cyanocobalamin [...] 11/03/2021 Assessment & Plan (11/03/2021 4:49 PM TURKEY PINNER): Although there is no clear evidence of [...] Department Care Team Description 01/13/2025 Results Follow-Up [facility] Medical [facility] Convenient Care at [address] [address] Shilpa Voss NP Urine culture Urine, clean voided 01/12/2025 9:28 AM CDT - 01/12/2025 11:59 PM CDT Hospital Encounter [address] [address] Hematuria, unspecified type Discharge Disposition: Discharge to home or self care 01/12/2025 9:00 AM CDT Office Visit [facility] Convenient Care at [address] [address] Suzanne Askew NP Hematuria, unspecified type (Primary Dx) 12/25/2024 Results Follow-Up [facility] [address] [place] [address] 6th [place] [address] [place] [address] Julia Mendoza MD PhD RPR Blood, TSH, Methylmalonic acid, serum, Vitamin B12 12/21/2024 Telephone [facility] [address] [facility] [address] [place] [address] Ana M Copeland, RMA Medication 12/19/2024 7:45 PM CDT Lab [facility] [address] [place] [address] Memory loss 12/19/2024 4:00 PM CDT Office Visit [facility] [place] [address] [facility] 6th [place] [address] [place] [address] Julia Mendoza MD PhD Moderate late onset [...] on file Legal 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 Male 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 Gender Identity Not on file Sexual [...] 01/12/2025 9:04 AM CDT Plan of Treatment Health Maintenance Due Date Last Done Comments Depression Screening 1945 Fall Risk Assessment 1945 Hepatitis B Screening 1961 Zoster Vaccine (1 of 2) 1962 DTaP/Tdap/Td Vaccine (1 - Tdap) 10/16/2004 5 [...] current clinical standards) Comment:Testing performed by : [facility], [address] [place]., [address] Organism (CLINICALLY INSIGNIFICANT GROWTH [facility] Urine, clean voided 01/12/2025 9:28 AM CDT 01/12/2025 4:01 PM CDT Narrative [facility] - 01/13/2025 5:35 PM CDT Please run sensitivity. Testing performed by [facility] Microbiology Laboratory ([phone]) Suzanne Askew NP LAB MICROBIOLOGY - GENERAL ORDERABLES Final Result [facility] [address] [place] [address] * (ABNORMAL) POCT urinalysis dipstick (01/12/2025 9:15 AM CDT) Color, Urine, POC Yellow Clarity, ur, POC Clear Clear Glucose, ur, POC Negative Negative Bilirubin, ur, POC Negative Negative Ketones, ur, POC Negative Negative Specific Vina, POC 1.030 1.003 - 1.030 Blood, ur, [...] acid, serum (12/19/2024 5:42 PM CDT) Pathologist [facility] MMA 0.24 <=0.40 nmol/mL [facility] Comment: ADDITIONAL INFORMATION This test was developed and its performance characteristics determined by [facility] in a manner consistent with CLIA requirements. This test has not been cleared or approved by the U.S. Food and Drug Administration. Test Performed by: [facility] [place] [address] Counseling Center Director: Elise Lacy Ph.D.; CLIA# [id number] Blood 12/19/2024 5:42 PM CDT 12/19/2024 7:56 PM CDT Narrative [facility] - 12/25/2024 8:48 AM CDT sent 1.0 ml serum Julia Mendoza MD PhD LAB BLOOD ORDERABLE S Final Result Performing Organization Address City/[facility] Co de Phone Number [facility] Department [place] [address] [facility] ref [facility] * RPR Blood (12/19/2024 5:42 PM CDT) Pathologist [facility] RPR Nonreactive Nonreactive Blood 12/19/2024 5:42 PM CDT 12/19/2024 6:32 PM CDT Julia Mendoza MD PhD LAB MICROBIOLOGY - GENERAL ORDERABLES Final Result [facility] [place] [address] * TSH (12/19/2024 5:42 PM CDT) Thyroid Stimulating Hormone 2.04 0.30 - 4.20 mcIUnit/mL Blood 12/19/2024 5:42 PM CDT 12/19/2024 6:32 PM CDT us Julia Mendoza MD PhD LAB BLOOD ORDERABLE S Final Result Performing Organization Address [facility] Co de Phone Number [facility] [address] * (ABNORMAL) Vitamin B12 (12/19/2024 5:42 PM CDT) Vitamin B12 1,806(H) 230 - 1,250 pg/mL Blood 12/19/2024 5:42 PM CDT 12/19/2024 6:32 PM CDT us Julia Mendoza MD PhD LAB BLOOD ORDERABLE S Final Result Performing Organization Address [facility] Co de Phone Number [facility] [place] [address] * SCAN - LABS (12/07/2024 4:58 PM CDT) us Provider Scanning Final Result * SCAN - LABS (12/05/2024 4:58 PM CDT) us Provider Scanning Final Result from Last 3 Months Insurance MEDICARE [facility] [place] [address] MEDICARE [facility] MEDICARE [employer] [facility] [address] Care Teams Counter Sales Representative Relationship Specialty Start Date End Date Pollo Lindquist MD [address] [place] [address] PCP - General Family Medicine 03/27/24
--- OUTSIDE RECORDS SUMMARY | 2025-02-06 15:11 | XMS_ITS | Clinical Summary ---
Author Organization [facility] Address [address] [place] [address] Phone Care Team Providers Care Cheese Cook Name Role Phone Leilani Talbot MD Primary Care Provider [phone] Allergies No known active allergies Medications calcitriol [...] Comments Blood Pressure 126/72 09/16/2021 4:13 PM FUEL STORAGE TECHNICIAN Pulse 72 09/16/2021 4:13 PM FUEL STORAGE TECHNICIAN Temperature 36.2 C (97.1 F) 09/16/2021 4:13 PM FUEL STORAGE TECHNICIAN Respiratory Rate - - Oxygen Saturation - - Inhaled Oxygen Concentration - - Weight 92.1 kg (203 lb) 09/16/2021 4:13 PM FUEL STORAGE TECHNICIAN Height 185.4 cm (6' 1) 09/16/2021 4:13 PM FUEL STORAGE TECHNICIAN Body Mass Index 26.78 09/16/2021 4:13 PM FUEL STORAGE TECHNICIAN Plan of Treatment Health Maintenance Due Date Last Done Comments Pneumococcal PPSV23/PCV13 65 + Years / Low and Medium Risk (1 of 4 - PCV) 1993 Influenza Vaccine (Season Ended) 2025 05/13/20 21 Insurance [employer] [place] MEDICARE SUPPLEMENT [facility] [id number] Care Teams Cheese Cook Relationship Specialty Start Date End Date Leilani Talbot MD [address] [place] [address] PCP - General Internal Medicine 09/03/21
--- OUTSIDE RECORDS SUMMARY | 2025-02-06 15:11 | XMS_ITS | Encounter Summary ---
Author Organization [facility] [employer] Address [address] [address] Care Team Providers Care Small Package And Bundle Sorter Clerk Name Role Phone Pollo Lindquist MD Primary Care Provider [phone] Encounter Details Date Type Department Care Team ([facility] Contact Info) Description 02/04/2025 Orders Only [facility] Oncology and [facility] [address] [place] [address] Kole Hermosillo MD [address] [place] [address] [email or web address] [address] [place] [address] 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) Social History Tobacco Use Types Packs/Day Years Used Date Smoking Tobacco: Never Smokeless Tobacco: Never Alcohol Use Standard Drinks/Week Comments Not Currently 0 (1 standard drink = 0.6 oz pur e alcohol) Sex and Gender Information Value Date Recorded Sex Assigned at Not on file Legal Sex Male 1:27 PM COPY CLERK Gender Identity Not on file Sexual Orientation Not on file documented as of this encounter Plan of Treatment Upcoming Encounters Date Type Department Care Team (Late Contact Info) Description 02/19/2025 2:00 PM CDT Office Visit [facility] Oncology and Hematology [facility] [address] [place] [address] Kole Hermosillo MD [address] [place] [address] [email or web address] [address] [place] [address] documented as of this encounter Visit Diagnoses Diagnosis 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
== END 2025-02-06 15:06 | disposition home or self-care (01) ==
PROVIDERS: PCP Family Medicine; Visit Provider Nurse Practitioner Family
DX: R31.0 Gross hematuria (principal); N20.2 Calculus of kidney with calculus of ureter; D35.02 Benign neoplasm of left adrenal gland
CPT/HCPCS: 74176

== ENCOUNTER 2025-02-21 14:01 | Outpatient (CLI) | payer MEDICARE, OTHER, SELFPAY ==
--- NOTE | ~2025-02-21 | XR_ITS ---
XR abdomen/kub 1V Ordering provider: Kusum Sellers APRN History: . Bi Kidney stone, follow up . Comparison: None. FINDINGS: BOWEL: Nonobstructive bowel gas pattern. ORGANOMEGALY: None. SIGNIFICANT PATHOLOGIC CALCIFICATIONS: Bilateral calcifications in the kidney areas which may be vasc ular stones cannot be excluded. OTHER: No free air is seen under the diaphragm. Vascular calcifications in the splenic artery. Degene rative changes of the spine. Bilateral sacroiliacs. Bilateral moderate hip osteoarthritic changes. Pu bic symphysitis. IMPRESSION: NO ACUTE ABDOMINAL FINDINGS. Bilateral renal calcifications which may be vascular or stones. Noncontrast CT is better for evaluati on. Reviewed, dictated and finalized at location A. IMPRESSION: NO ACUTE ABDOMINAL FINDINGS. Bilateral renal calcifications which may be vascular or stones. Noncontrast CT is better for evaluation.
--- OUTSIDE RECORDS SUMMARY | 2025-02-21 14:41 | XMS_ITS | Clinical Summary ---
Author Organization [facility] [employer] Address [address] [place] [address] Care Team Providers Care Baby Formula Mixer Name Role Phone Kelvin Rosado MD Primary Care Provider [phone] Source Comments [facility] [employer],non-owned Affiliates and Associated Physician Practices is amultiple site organization consisting of ambulatory clinics and hospital sitesin [place], [place], [place] and [place]. This disclosure is being madepursuant to the Care Everywhere program and may not contain all information available regarding this patient. 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 Gender Identity Not on file Sexual Orientation Not on file Last Filed Vital Signs Vital Sign Reading Time Taken Comments Blood Pressure 115/86 09/28/2016 8:47 AM FAMILY SERVICES ASSISTANT Pulse 81 09/28/2016 8:47 AM FAMILY SERVICES ASSISTANT Temperature - - Respiratory Rate - - Oxygen Saturation 96% 09/28/2016 8:47 AM FAMILY SERVICES ASSISTANT Inhaled Oxygen Concentration - - Weight 102.1 kg (225 lb) 09/28/2016 7:16 AM FAMILY SERVICES ASSISTANT Height 185.4 cm (6' 1) 09/28/2016 7:16 AM FAMILY SERVICES ASSISTANT Body Mass Index 29.69 09/28/2016 7:16 AM FAMILY SERVICES ASSISTANT Plan of Treatment Health Maintenance Due Date [...] patient's age to complete this topic Insurance [facility] Care Teams Baby Formula Mixer Relationship Specialty Start Date End Date Kelvin Rosado MD [address] [facility] [place] [address] PCP - General 07/01/16
--- OUTSIDE RECORDS SUMMARY | 2025-02-21 14:41 | XMS_ITS | Encounter Summary ---
Author Organization [facility] Address [address] [facility] [place] [address] Care Team Providers Care Talent Analyst Name Role Phone Kelvin Rosado MD Primary Care Provider [phone] Encounter Details Date Type Department Care Team (Late st Contact Info) Description 06/30/2023 Lab Requisition [facility] - Pathology Lab [address] [place] [address] Steve Kaba MD [address] [place] [address] Immunodeficiency, unspecified; Elevated white blood cell count, unspecified Social History Tobacco Use Types Packs/Day Years Used Date Smoking Tobacco: Never Alcohol Use Standard Drinks/Week Comments Yes 0 (1 standard drink = 0.6 oz pur e alcohol) Sex and Gender Information Value Date Recorded Sex Assigned at Not on file 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 Pathology Lab Received: 06/30/2023 12:29 PM Pathologist: Fidencio Espinoza MD Specimen: Bone Marrow 06/30/2023 2:[address] [facility] PATHOLOGY LAB Final Diagnosis Bone marrow, flow cytometric immunophenotypic analysis: - No evidence of non-Hodgkin lymphoma or high-grade myeloid neoplasm. - See interpretation. Correlation with clinical findings, the concurrent bone marrow core biopsy, and relevant cytogenetic/molecu lar studies is required. 06/30/2023 2:[address] [facility] PATHOLOGY LAB at 1402 CDT Flow Cytometry Interpretation Viability: 91% Lymphocytes (4%): B-cells: polytypic, kappa:lambda ratio 2:1 T-cells: no immunophenotypic aberrancy detected Blasts in the dimCD45 gate (2% all events) by CD34 co-expression are detected, 0.6% of all events, express CD13 and CD33. A bone marrow aspirate smear prepared from the flow cytometry specimen has been reviewed for quality improvement coordinator (rn) purposes. 06/30/2023 2:[address] [facility] PATHOLOGY LAB Flow Cytometry Results Differential Result Comment Flow Cell Count /uL 15,900 Total Viability % 91.0 Lymphocytes % 4 Dim CD45 Region % 2 Monocytes % 38 Granulocytes % 56 06/30/2023 2:[address] 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 06/30/2023 2:[address] [facility] PATHOLOGY LAB Client Specimen ID # [id number] 06/30/2023 2:[address] [facility] PATHOLOGY LAB Number of markers 10 were performed. A-2 Flow CD10 A-3 Flow CD13 A-5 Flow CD20 A-1 Flow CD5 A-4 Flow CD19 A-6 Flow CD33 A-7 Flow CD34 A-8 Flow CD45 A-9 [place]+CD19+ A-10 Lambda+CD19+ 06/30/2023 2:[address] [facility] PATHOLOGY LAB Pathologist Location at [facility] 06/30/2023 2:[address] [facility] PATHOLOGY LAB Disclaimer Test performed at [facility], [address] [place] [address], [address]. *The established laboratory minimum viability is 70%. [...] complexity clinical testing. 06/30/2023 2:02 PM CDT [facility] PATHOLOGY LAB Embedded Images 2:02 PM CDT [facility] PATHOLOGY LAB Pathology/Cytolo gy BONE MARROW SPECIMEN / Unknown 06/30/2023 9:00 AM CDT 06/30/2023 12:29 PM CDT Steve Kaba MD LAB - PATHOLOGY/CYT OLOGY ORDERABLES Final Result Performing Organization Address City/[facility] de Phone Number [facility] PATHOLOGY LAB [address] [phone] documented in this encounter Visit Diagnoses Diagnosis Immunodeficiency, unspecified (HCC) Elevated white blood cell count, unspecified documented in this encounter Care Teams Talent Analyst Relationship Specialty Start Date End Date Kelvin Rosado MD [address] [facility] [place] [address] PCP - General 07/01/16 documented as of this encounter
--- OUTSIDE RECORDS SUMMARY | 2025-02-21 14:41 | XMS_ITS | Encounter Summary ---
Author Organization [facility] Address [address] [place] [address] Care Team Providers Care Wool Presser Name Role Phone Pollo Lindquist MD Primary Care Provider [phone] Encounter Details Date Type Department Care Team (Late st Contact Info) Description 02/18/2025 Orders Only [facility] Oncology and Hematology - Derrick [address] [facility] [address] [place] [address] Kole Hermosillo MD [address] [facility] [address] [place] [address] 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) Social History Tobacco Use Types Packs/Day Years Used Date Smoking Tobacco: Never Smokeless Tobacco: Never Alcohol Use Standard Drinks/Week Comments Not Currently 0 (1 standard drink = 0.6 oz pur e alcohol) Sex and Gender Information Value Date Recorded Sex Assigned at Not on file 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
--- OUTSIDE RECORDS SUMMARY | 2025-02-21 14:41 | XMS_ITS | Encounter Summary ---
Author Organization [facility] Address [address] [place] [address] Care Team Providers Care Vat Overhauler Name Role Phone Pollo Lindquist MD Primary Care Provider [phone] Encounter Details Date Type Department Care Team (Late st Contact Info) Description 01/13/2025 Results Follow-Up [facility] Convenient Care at [address] [address] Shilpa Voss NP [address] [facility] [address] [place], [place] [id number] Urine culture Urine, clean voided Social History Tobacco Use Types Packs/Day Years Used Date Smoking Tobacco: Never Alcohol Use Standard Drinks/Week Comments Yes 0 (1 standard drink = 0.6 oz pur e alcohol) Sex and Gender Information Value Date Recorded Sex Assigned at Not on file 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
--- OUTSIDE RECORDS SUMMARY | 2025-02-21 14:41 | XMS_ITS | Encounter Summary ---
Author Organization [facility] Address [address] [facility] [place] [address] Care Team Providers Care Form Drafter Name Role Phone Kelvin Rosado MD Primary Care Provider [phone] Encounter Details Date Type Department Care Team (Late st Contact Info) Description 07/04/2023 Lab Requisition [facility] - Pathology Lab [address] [place] [address] Steve Kaba MD [address] [place] [address] Illness, unspecified Social History Tobacco Use Types Packs/Day Years Used Date Smoking Tobacco: Never Alcohol Use Standard Drinks/Week Comments Yes 0 (1 standard drink = 0.6 oz pur e alcohol) Sex and Gender Information Value Date Recorded Sex Assigned at Not on file 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 PATHOLOGY LAB Final Diagnosis Bone marrow, aspirate, clot section, and core biopsy: - Hypercellular marrow with trilineage dyspoiesis and monocytosis. - No increased blasts seen. - See description. Peripheral blood smear: - Bicytopenia and leukocytosis with absolute monocytosis. - See description. 07/04/2023 11:[address] [facility] PATHOLOGY LAB at 1135 CDT AP Comment Overall findings are best classified as chronic myelomonocytic leukemia. The monocytic component appears mature with coarse chromatin and no nucleoli. Myeloblasts are not increased. This diagnosis would be supported by the lack of a bcr/abl translocation and mutations in SRSF2, TET2, and/or ASXL1. Genetic correlation is recommended. 07/04/2023 11:[address] [facility] PATHOLOGY LAB Peripheral Smear Description RBC: macrocytic anemia. WBC: leukocytosis with absolute monocytosis, mature in appearance. Platelets: decreased in number. 07/04/2023 11:[address] [facility] PATHOLOGY LAB Bone Marrow Aspirate Differential count [...] stain): no ring sideroblasts. 07/04/2023 11:[address] [facility] PATHOLOGY LAB Bone Marrow Core Biopsy and [...] similar to core biopsy. 07/04/2023 11:[address] [facility] PATHOLOGY LAB Flow Cytometry Summary Bone marrow, flow cytometric immunophenotypic analysis ([id number]): - No evidence of non-Hodgkin lymphoma or high-grade myeloid neoplasm. - See interpretation. 07/04/2023 11:35 AM [facility] PATH[facility] Clinical History Leukocytosis and absolute monocytosis. 07/04/2023 11:[address] [facility] PATHOLOGY LAB Materials Received Received are 20 slide(s) and 3 block(s) labeled [id number] along with a copy of the outside pathology report. [place] [address]. All original materials are returned to the referring institution, along with a copy of our final report. 07/04/2023 11:[address] [facility] PATHOLOGY LAB Pathologist Location at [facility] 07/04/2023 11:[address] [facility] PATHOLOGY LAB Disclaimer The performance characteristics of all immunohistochemical and indirect immunofluorescence stains (if any) cited in this report were determined by the Histopathology Laboratory of [facility]. Some of these tests were developed by [...] the attending (teaching) pathologist. 07/04/2023 11:[address] [facility] PATHOLOGY LAB Embedded Images 07/04/2023 11:35 AM T [facility] PATHOLOGY LAB Pathology/Cytology BONE MARROW CLOT SPECIMEN / Unknown 06/30/2023 9:00 AM CDT 07/04/2023 9:15 AM CDT Miscellaneous samples (specimen) BONE MARROW CLOT SPECIMEN / Unknown 06/30/2023 9:00 AM CDT 07/04/2023 9:15 AM CDT Steve Kaba MD LAB - PATHOLOGY/CYT OLOGY ORDERABLES Final Result [facility] PATHOLOGY LAB [address] [place] [address] documented in this encounter Visit Diagnoses Diagnosis Illness, unspecified documented in this encounter Care Teams Form Drafter Relationship Specialty Start Date End Date Kelvin Rosado MD [address] [place] [address] PCP - General 07/01/16 documented as of this encounter
--- OUTSIDE RECORDS SUMMARY | 2025-02-21 14:41 | XMS_ITS | Referral Summary ---
Author Organization [facility] [address] Address [address] [place] [address] Care Team Providers Care Sign Erector And Repairer Name Role Phone Pollo Lindquist MD Primary Care Provider [phone] Encounters Date Type Department Care Team Description 01/13/2025 Results Follow-Up [facility] Convenient Care at [address] [phone] Shilpa Voss, JORGE Urine culture Urine, clean voided 01/12/2025 9:28 AM CDT - 01/12/2025 11:59 PM CDT Hospital Encounter [address] [id number] Hematuria, unspecified type Discharge Disposition: Discharge to home or self care 01/12/2025 9:00 AM CDT Office Visit [facility] Con[facility]ient Care at [address] [phone] Suzanne Askew NP Hematuria, unspecified type (Primary Dx) 12/25/2024 Results Follow-Up [facility] [address] [facility] 6th [place] [address] [place] [address] Julia Mendoza MD PhD RPR Blood, TSH, Methylmalonic acid, serum, Vitamin B12 12/21/2024 Telephone [facility] [address] [facility] First Floor [address] [place] [address] Ana M Copeland, RMA Medication 12/19/2024 7:45 PM CDT Lab [facility] [address] [place] [address] Memory loss 12/19/2024 4:00 PM CDT Office Visit [facility] [address] [facility] 6th [place] [address] [place] [address] Julia Mendoza MD PhD Moderate late onset Alzheimer's dementia without behavioral disturbance, psychotic disturbance, mood disturbance, or anxiety (HCC) (Primary Dx) 12/07/2024 Orders Only [facility] Scanning, Provider 12/05/2024 Orders Only [facility] Scanning, Provider from Last 3 [...] 11/03/2021 Assessment & Plan (11/03/2021 4:49 PM ARCHIVIST): Although there is no clear evidence of [...] on file Legal Sex Male 1:59 AM ARCHIVIST Gender Identity Not on file Sexual Orientation [...] current clinical standards) Comment:Testing performed by : [facility], [address] [place]., [address] Organism (CLINICALLY INSIGNIFICANT GROWTH [facility] Urine, clean voided 01/12/2025 9:28 AM CDT 01/12/2025 4:01 PM CDT Narrative [facility] - 01/13/2025 5:35 PM CDT Please run sensitivity. Testing performed by [facility] Microbiology Laboratory ([phone]) Suzanne Askew NP LAB MICROBIOLOGY - GENERAL ORDERABLES Final Result [facility] [address] [address] Department [place] [address] * (ABNORMAL) POCT urinalysis dipstick (01/12/2025 9:15 AM CDT) Color, Urine, POC Yellow Clarity, ur, POC Clear Clear Glucose, ur, POC Negative Negative Bilirubin, ur, POC Negative Negative Ketones, ur, POC Negative Negative Specific [place], POC 1.030 1.003 - 1.030 Blood, ur, [...] 5:42 PM CDT) MMA 0.24 <=0.40 nmol/mL [facility] Comment: ADDITIONAL INFORMATION This test was developed and its performance characteristics determined by [facility] in a manner consistent with CLIA requirements. This test has not been cleared or approved by the U.S. Food and Drug Administration. Test Performed by: [place] [address] Vice President Of Customer Service: Elise Lacy Ph.D.; CLIA# [id number] Blood 12/19/2024 5:42 PM CDT 12/19/2024 7:56 PM CDT Narrative [facility] - 12/25/2024 8:48 AM CDT sent 1.0 ml serum Julia Mendoza MD PhD LAB BLOOD ORDERABLE S Final Result Performing Organization Address [facility] Co de Phone Number [facility] Department of [employer] [place] [address] [facility] ref [facility] * RPR Blood (12/19/2024 5:42 PM CDT) RPR Nonreactive Nonreactive Blood 12/19/2024 5:42 PM CDT 12/19/2024 6:32 PM CDT Julia Mendoza MD PhD LAB MICROBIOLOGY - GENERAL ORDERABLES Final Result Performing Organization Address City/[facility] Co de Phone Number [facility] [place] [place] [address] * TSH (12/19/2024 5:42 PM CDT) Thyroid Stimulating Hormone 2.04 0.30 - 4.20 mcIUnit/mL Blood 12/19/2024 5:42 PM CDT 12/19/2024 6:32 PM CDT Julia Mendoza MD PhD LAB BLOOD ORDERABLE S Final Result [facility] Department [place] [address] * (ABNORMAL) Vitamin B12 (12/19/2024 5:42 PM CDT) Vitamin B12 1,806(H) 230 - 1,250 pg/mL Blood 12/19/2024 5:42 PM CDT 12/19/2024 6:32 PM CDT Julia Mendoza MD PhD LAB BLOOD ORDERABLE S Final Result Performing Organization Address [facility] Co de Phone Number [facility] Department [place] [address] * SCAN - LABS (12/07/2024 4:58 PM CDT) Provider Scanning Final Result * SCAN - LABS (12/05/2024 4:58 PM CDT) Provider Scanning Final Result from Last 3 Months [place] [address] MEDICARE [facility] MEDICARE [facility] MEDICARE [facility] Care Teams Sign Erector And Repairer Relationship Specialty Start Date End Date Pollo Lindquist MD [address] [place] [address] PCP - General Family Medicine 03/27/24
--- OUTSIDE RECORDS SUMMARY | 2025-02-21 14:41 | XMS_ITS | Encounter Summary ---
Author Organization [facility] Address [address] [place] [address] Phone Care Team Providers Care Parking Officer Name Role Phone Pollo Lindquist MD Primary Care Provider [phone] Encounter Details Date Type Department Care Team (Late st Contact Info) Description 12/25/2024 Results Follow-Up [facility] [address] [facility] 6th [place] [address] [place] [address] Julia Mendoza MD PhD [address] [facility] [address] [place] [address] RPR Blood, TSH, Methylmalonic acid, serum, Vitamin B12 Social History Tobacco Use Types Packs/Day Years Used Date Smoking Tobacco: Never Alcohol Use Standard Drinks/Week Comments Yes 0 (1 standard drink = 0.6 oz pur e alcohol) Sex and Gender Information Value Date Recorded Sex Assigned at Not on file 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
--- OUTSIDE RECORDS SUMMARY | 2025-02-21 14:41 | XMS_ITS | Encounter Summary ---
Author Organization [facility] Address [address] [place] [address] Care Team Providers Care Reeler Operator Name Role Phone Pollo Lindquist MD Primary Care Provider [phone] Encounter Details Date Type Department Care Team (Late st Contact Info) Description 02/19/[address] 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 Gender Identity Not on file Sexual Orientation Not on file documented as of this encounter Plan of Treatment Not on file documented as of this encounter Procedures Procedure Name Priority Date/Time Associated Diagnosis Comments COMPREHENSIVE METABOLIC PANEL Routine 02/18/2025 10:56 AM CDT CBC WITH AUTODIFFERENTIAL Routine 2024 10:14 AM CDT BASIC METABOLIC PANEL Routine 02/18/2025 10:13 AM CDT documented in this encounter Results * COMPREHENSIVE METABOLIC PANEL (02/18/2025 10:56 AM CDT) Blood Kole Hermosillo MD CHEMISTRY ORDERABLES Final Resu lt * CBC WITH AUTODIFFERENTIAL (02/18/2025 10:14 AM CDT) Blood us Kole Hermosillo MD HEMATOLOGY ORDERABLES Final Res ult * BASIC METABOLIC PANEL (02/18/2025 10:13 AM CDT) Blood us Kole Hermosillo MD CHEMISTRY ORDERABLES Final Resu lt documented in this encounter Visit Diagnoses Not on filedocumented in this encounter Care Teams Reeler Operator Relationship Specialty Start Date End Date Pollo Lindquist MD [address] [place] [phone] PCP - General Family Practice 06/15/23 documented as of this encounter
--- OUTSIDE RECORDS SUMMARY | 2025-02-21 14:41 | XMS_ITS | Clinical Summary ---
Author Organization [facility] [address] Address [address] [place] [address] Care Team Providers Care Billing And Quality Technician Name Role Phone Pollo Lindquist MD Primary Care Provider [phone] Allergies No known active allergies Medications cyanocobalamin [...] 11/03/2021 Assessment & Plan (11/03/2021 4:49 PM TILE CONDUIT LAYER): Although there is no clear evidence of [...] Department Care Team Description 01/13/2025 Results Follow-Up [facility] Medical [facility] at [address] [address] Shilpa Voss NP Urine culture Urine, clean voided 01/12/2025 9:28 AM CDT - 01/12/2025 11:59 PM CDT Hospital Encounter [address] [address] Hematuria, unspecified type Discharge Disposition: Discharge to home or self care 01/12/2025 9:00 AM CDT Office Visit [facility]ient Care at [address] [address] Suzanne Askew NP Hematuria, unspecified type (Primary Dx) 12/25/2024 Results Follow-Up [facility] [address] [place] [address] 6th [place] [address] [place] [address] Julia Mendoza MD PhD RPR Blood, TSH, Methylmalonic acid, serum, Vitamin B12 12/21/2024 Telephone [facility] [address] [facility] First Floor [address] [place] [address] Ana M Copeland, RMA Medication 12/19/2024 7:45 PM CDT Lab [facility] [address] [place] [address] Memory loss 12/19/2024 4:00 PM CDT Office Visit [facility] Diagnostic [place] [address] [facility] 6th [place] [address] [place] [address] Julia Mendoza MD PhD Moderate late onset [...] on file Legal Sex Male 1:59 AM TILE CONDUIT 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 Testing performed by [facility] Microbiology Laboratory ([phone]) Suzanne Askew NP LAB MICROBIOLOGY - GENERAL ORDERABLES Final Result S[facility] [address] Department [place] [address] * (ABNORMAL) POCT urinalysis dipstick (01/12/2025 9:15 AM CDT) Color, Urine, POC Yellow Clarity, ur, POC Clear Clear Glucose, ur, POC Negative Negative Bilirubin, ur, POC Negative Negative Ketones, ur, POC Negative Negative Specific [place], POC 1.030 1.003 - 1.030 Blood, ur, [...] serum (12/19/2024 5:42 PM CDT) Pathologist [facility] MMA 0.24 <=0.40 nmol/mL [facility] Comment: ADDITIONAL INFORMATION This test was developed and its performance characteristics determined by [facility] in a manner consistent with CLIA requirements. This test has not been cleared or approved by the U.S. Food and Drug Administration. Test Performed by: [facility] [place] [address] Head Banquet Waitress: Elise Lacy Ph.D.; CLIA# [id number] Blood 12/19/2024 5:42 PM CDT 12/19/2024 7:56 PM CDT Narrative [facility] - 12/25/2024 8:48 AM CDT sent 1.0 ml serum Julia Mendoza MD PhD LAB BLOOD ORDERABLE S Final Result Performing Organization Address City/[facility] Co de Phone Number [facility] Department [place] [address] [facility] ref [facility] * RPR Blood (12/19/2024 5:42 PM CDT) Pathologist [facility] RPR Nonreactive Nonreactive Blood 12/19/2024 5:42 PM CDT 12/19/2024 6:32 PM CDT Julia Mendoza MD PhD LAB MICROBIOLOGY - GENERAL ORDERABLES Final Result [facility] Department [place] [address] * TSH (12/19/2024 5:42 PM CDT) Thyroid Stimulating Hormone 2.04 0.30 - 4.20 mcIUnit/mL Blood 12/19/2024 5:42 PM CDT 12/19/2024 6:32 PM CDT us Julia Mendoza MD PhD LAB BLOOD ORDERABLE S Final Result Performing Organization Address [facility] Co de Phone Number [facility] [place] [address] * (ABNORMAL) Vitamin B12 (12/19/2024 5:42 PM CDT) Vitamin B12 1,806(H) 230 - 1,250 pg/mL Blood 12/19/2024 5:42 PM CDT 12/19/2024 6:32 PM CDT us Julia Mendoza MD PhD LAB BLOOD ORDERABLE S Final Result Performing Organization Address [facility] Co de Phone Number [facility] [place] [address] * SCAN - LABS (12/07/2024 4:58 PM CDT) us Provider Scanning Final Result * SCAN - LABS (12/05/2024 4:58 PM CDT) us Provider Scanning Final Result from Last 3 Months Insurance MEDICARE [facility] [address] MEDICARE [facility] MEDICARE [place] [address] Care Teams Billing And Quality Technician Relationship Specialty Start Date End Date Pollo Lindquist MD [address] [place] [address] PCP - General Family Medicine 03/27/24
--- OUTSIDE RECORDS SUMMARY | 2025-02-21 14:41 | XMS_ITS | Clinical Summary ---
Author Organization [facility] Geovany hong Bettye Address [address] [place] [address] Care Team Providers Care Tucking Machine Operator Name Role Phone Pollo Lindquist MD Primary Care Provider [phone] Allergies No known active allergies Medications levothyroxine [...] Encounters Date Type Department Care Team Description 02/19/2025 Orders Only [facility] Oncology and Hematology - [address] [place] [address] Kole Hermosillo MD 02/18/2025 Orders Only [facility] Oncology and Hematology - [address] [place] [address] Kole Hermosillo MD 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) 02/05/2025 External Device Data STL ABSTRACTION Provider, Abstract 02/04/2025 Orders Only [facility] Oncology and Hematology - [address] [place] [address] Kole Hermosillo MD 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) 01/31/2025 External Device Data STL ABSTRACTION Provider, Abstract 01/30/2025 External Device Data STL ABSTRACTION Provider, Abstract 01/29/2025 External Device Data STL ABSTRACTION Provider, Abstract 01/23/2025 Orders Only [facility] Oncology and Hematology - [address] [place] [address] Kole Hermosillo MD 01/22/2025 Orders Only [facility] Oncology and Hematology - [address] [place] [address] Kole Hermosillo MD 01/21/2025 Orders Only [facility] Oncology and Hematology - [address] [place] [address] Kole Hermosillo MD 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) 01/07/2025 Orders Only [facility] Oncology and Hematology - [address] [place] [address] Kole Hermosillo MD 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) 12/27/2024 9:45 AM CDT Office Visit [facility] Oncology and Hematology - [address] [place] [address] Kole Hermosillo MD 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) (Primary Dx) 12/24/2024 Orders Only [facility] Oncology and Hematology - [address] [place] [address] Kole Heromsillo MD 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) 12/10/2024 Orders Only [facility] Oncology and Hematology - [address] [place] [address] Kole Hermosillo MD 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) 11/28/2024 External Device Data STL ABSTRACTION Provider, Abstract from Last 3 Months Family History Relation [...] on file 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 Blood us Kole Hermosillo MD CHEMISTRY ORDERABLES Final Resu lt * CBC WITH AUTODIFFERENTIAL (02/18/2025 10:14 AM CDT) Only the most recent of2 resultswithin the time period is included. Blood us Kole Hermosillo MD HEMATOLOGY ORDERABLES Final Res ult * BASIC METABOLIC PANEL (02/18/2025 10:13 AM CDT) Only the most recent of2 resultswithin the time period is included. Blood us Kole Hermosillo MD CHEMISTRY ORDERABLES Final Resu lt from Last 3 Months Insurance MEDICARE PART A AND B [facility] [place] [address] Care Teams Tucking Machine Operator Relationship Specialty Start Date End Date Pollo Lindquist MD [address] [place] [address] PCP - General Family Practice 06/15/23
--- OUTSIDE RECORDS SUMMARY | 2025-02-21 14:41 | XMS_ITS | Clinical Summary ---
Author Organization [facility] Eloisa utirosario Address [address] [place] [address] Phone Care Team Providers Care Airborne Weapons Technical Manager Name Role Phone Leilani Talbot MD Primary Care Provider [phone] Allergies No known active allergies Medications calcitriol [...] Comments Blood Pressure 126/72 09/16/2021 4:13 PM SOCIAL WORKER PSYCHIATRIC Pulse 72 09/16/2021 4:13 PM SOCIAL WORKER PSYCHIATRIC Temperature 36.2 C (97.1 F) 09/16/2021 4:13 PM SOCIAL WORKER PSYCHIATRIC Respiratory Rate - - Oxygen Saturation - - Inhaled Oxygen Concentration - - Weight 92.1 kg (203 lb) 09/16/2021 4:13 PM SOCIAL WORKER PSYCHIATRIC Height 185.4 cm (6' 1) 09/16/2021 4:13 PM SOCIAL WORKER PSYCHIATRIC Body Mass Index 26.78 09/16/2021 4:13 PM SOCIAL WORKER PSYCHIATRIC Plan of Treatment Health Maintenance Due Date Last Done Comments Pneumococcal PPSV23/PCV13 65 + Years / Low and Medium Risk (1 of 4 - PCV) 1993 Influenza Vaccine (Season Ended) 2025 05/13/20 21 Insurance [employer] MEDICARE SUPPLEMENT [facility] [id number] Care Teams Airborne Weapons Technical Manager Relationship Specialty Start Date End Date Leilani Talbot MD [address] [place] [address] PCP - General Internal Medicine 09/03/21
== END 2025-02-21 14:02 | disposition home or self-care (01) ==
PROVIDERS: PCP Family Medicine; Visit Provider Nurse Practitioner Family
DX: N20.0 Calculus of kidney (principal)
CPT/HCPCS: 74018

== ENCOUNTER 2025-03-08 15:18 | Outpatient (CLI) | payer MEDICARE, OTHER, SELFPAY ==
[2025-03-08 15:44] LABS: Hematocrit 33.5 % (42.0-52.0); Hemoglobin 10.5 g/dL (14.0-18.0); Immature Platelet Fraction Pct 9.3 % (0.9-11.2); Mean Corpuscular HGB Conc 31.3 g/dl (32-36); Mean Corpuscular Hemoglobin 31.6 pg (26-34); Mean Corpuscular Volume 100.9 fl (80-100); Mean Platelet Volume 11.7 fl (7.4-10.4); Platelet Count Result 131 k/mm3 (150-375); Red Blood Count 3.32 M/mm3 (4.6-6.20); Red Cell Distribution Width 18.1 % (11.5-14.5); White Blood Count 12.8 K/mm3 (4.5-10.0)
[2025-03-08 16:09] LABS: Creatinine Urine 93.8 mg/dL; Total Protein Urine Random 120 mg/dL; Ur Ttl Prot Creatinine Ratio 1.28 mg/mg (0-0.20)
[2025-03-08 16:23] LABS: Albumin Level 4.8 g/dL (3.5-5.1); Anion Gap 11 mmol/L (4-12); Blood Urea Nitrogen 27 mg/dL (9-20); Calcium 9.3 mg/dL (8.4-10.2); Carbon Dioxide 27 mmol/L (22-30); Chloride 101 mmol/L (98-107); Estimated Glomerular Filt Rate 24; Glucose 116 mg/dL (65-110); Phosphorus 4.3 mg/dL (2.5-4.5); Potassium 4.2 mmol/L (3.4-5.0); Sodium 139 mmol/L (137-145)
[2025-03-08 16:32] LABS: Free T4 Free Thyroxine 1.47 ng/dL (0.78-2.19)
[2025-03-08 16:33] LABS: Vitamin D 25 Hydroxy 72.8 ng/mL
[2025-03-08 16:34] LABS: Parathyroid Intact 50.4 pg/mL (14.5-75.2)
== END 2025-03-08 15:19 | disposition home or self-care (01) ==
PROVIDERS: PCP Family Medicine; Visit Provider Internal Medicine Nephrology
DX: I12.9 Hypertensive chronic kidney disease with stage 1 through stage 4 chronic kidney disease, or unspecified chronic kidney disease (principal); N18.4 Chronic kidney disease, stage 4 (severe); E03.9 Hypothyroidism, unspecified; E21.1 Secondary hyperparathyroidism, not elsewhere classified
CPT/HCPCS: 36415; 80069; 82306; 82570; 83970; 84156; 84439; 84443; 85027; 85055

== ENCOUNTER 2025-07-04 14:59 | Outpatient (CLI) | payer MEDICARE, OTHER, SELFPAY ==
[2025-07-04 15:37] LABS: Hematocrit 35.3 % (42.0-52.0); Hemoglobin 11.1 g/dL (14.0-18.0); Immature Platelet Fraction Pct 10.8 % (0.9-11.2); Mean Corpuscular HGB Conc 31.4 g/dl (32-36); Mean Corpuscular Hemoglobin 29.5 pg (26-34); Mean Corpuscular Volume 93.9 fl (80-100); Red Blood Count 3.76 M/mm3 (4.6-6.20); White Blood Count 19.1 K/mm3 (4.5-10.0)
[2025-07-04 15:43] LABS: Total Protein Urine Random 111 mg/dL; Ur Ttl Prot Creatinine Ratio 1.34 mg/mg (0-0.20)
[2025-07-04 15:50] LABS: Albumin Level 4.3 g/dL (3.5-5.1); Anion Gap 8 mmol/L (4-12); Blood Urea Nitrogen 25 mg/dL (9-20); Calcium 9.3 mg/dL (8.4-10.2); Carbon Dioxide 29 mmol/L (22-30); Chloride 102 mmol/L (98-107); Estimated Glomerular Filt Rate 23; Glucose 97 mg/dL (65-110); Potassium 4.6 mmol/L (3.4-5.0); Sodium 139 mmol/L (137-145)
[2025-07-04 15:59] LABS: Platelet Count Result 100 k/mm3 (150-375)
[2025-07-04 16:03] LABS: Parathyroid Intact 27.4 pg/mL (14.5-75.2)
--- OUTSIDE RECORDS SUMMARY | 2025-07-04 16:05 | XMS_ITS | Encounter Summary ---
Author Organization [facility] Address [address] [place] [address] Care Team Providers Care Inside Sales Director Name Role Phone Kelvin Rosado MD Primary Care Provider [phone] Encounter Details Date Type Department Care Team (Late st Contact Info) Description 07/04/2023 Lab Requisition 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 - No increased blasts seen. - See description. Peripheral blood smear: - Bicytopenia and leukocytosis with absolute monocytosis. - See description. 07/04/2023 11:35 AM [facility] PATHOLOGY LAB at 1135 CDT AP Comment Overall findings are best classified as chronic myelomonocytic leukemia. The monocytic component appears mature with coarse chromatin and no nucleoli. Myeloblasts are not increased. This diagnosis would be supported by the lack of a bcr/abl translocation and mutations in SRSF2, TET2, and/or ASXL1. Genetic correlation is recommended. 07/04/2023 11:35 AM [facility] PATH[facility] Peripheral Smear Description RBC: macrocytic anemia. WBC: leukocytosis with absolute monocytosis, mature in appearance. Platelets: decreased in number. 07/04/2023 11:35 AM [facility] PATH[facility] Bone Marrow Aspirate Differential [...] stain): no ring sideroblasts. 07/04/2023 11:35 AM [facility] PATH[facility] Bone Marrow Core Biopsy [...] similar to core biopsy. 07/04/2023 11:35 AM [facility] PATH[facility] Flow Cytometry Summary Bone marrow, flow cytometric immunophenotypic analysis ([id number]): - No evidence of non-Hodgkin lymphoma or high-grade myeloid neoplasm. - See interpretation. 07/04/2023 11:35 AM [facility] Clinical History Leukocytosis and absolute monocytosis. 07/04/2023 11:35 AM [facility] PATH[facility] Materials Received Received are 20 slide(s) and 3 block(s) labeled [id number] along with a copy of the outside pathology report. [place] [address]. All original materials are returned to the referring institution, along with a copy of our final report. 07/04/2023 11:35 AM [facility] PATH[facility] Pathologist Location at [facility] 07/04/2023 11:35 AM [facility] PATH[facility] Disclaimer The performance characteristics of all immunohistochemical and indirect immunofluorescence stains (if any) cited in this report were determined by the Histopathology Laboratory of [facility]. Some of these tests were developed by [...] the attending (teaching) pathologist. 07/04/2023 11:35 AM [facility] PATH[facility] LAB Embedded Images 07/04/2023 11:35 AM T [facility] PATHOLOGY LAB Pathology/Cytology BONE MARROW CLOT SPECIMEN / Unknown 06/30/2023 9:00 AM CDT 07/04/2023 9:15 AM CDT Miscellaneous samples (specimen) BONE MARROW CLOT SPECIMEN / Unknown 06/30/2023 9:00 AM CDT 07/04/2023 9:15 AM CDT Steve Kaba MD LAB - PATHOLOGY/CYT OLOGY ORDERABLES Final Result [facility] PATHOLOGY LAB [address] [place] [address] documented in this encounter Visit Diagnoses Diagnosis Illness, unspecified documented in this encounter Care Teams Inside Sales Director Relationship Specialty Start Date End Date Kelvin Rosado MD [address] [place] [address] PCP - General 07/01/16 documented as of this encounter
--- OUTSIDE RECORDS SUMMARY | 2025-07-04 16:05 | XMS_ITS | Clinical Summary ---
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 Assessment & Plan (11/03/2021 4:49 PM HONING MACHINE OPERATOR TOOL): Although there is no clear evidence of [...] Encounters Date Type Department Care Team Description 04/09/2025 1:00 PM CDT Office Visit [facility] Medical [facility] Cardiology at [address] [place] [address] Scout Griffith MD Chronic atrial fibrillation (HCC) (Primary Dx) from Last 3 Months Medical History Medical [...] on file Legal Sex Male 1:59 AM HONING MACHINE OPERATOR TOOL Gender Identity Not on file Sexual Orientation Not on file Obstetrics History Last Filed Vital Signs Vital Sign Reading Time Taken Comments Blood Pressure 114/80 04/09/2025 12:55 PM CDT Pulse 86 04/09/2025 12:55 PM CDT Temperature 36 C (96.8 F) 01/12/2025 9:04 AM CDT Respiratory Rate 18 01/12/2025 9:04 AM CDT Oxygen Saturation 99% 04/09/2025 12:55 PM CDT Inhaled Oxygen Concentration - - Weight 76.3 kg (168 lb 4.8 oz) 04/09/2025 12:55 PM CDT Height 182.9 cm (6') 04/09/2025 12:55 PM CDT Body Mass Index 22.83 04/09/2025 12:55 PM CDT Plan of Treatment Health Maintenance Due Date Last Done Comments Depression Screening 1945 Fall Risk Assessment 1945 Hepatitis B Screening 1961 Zoster Vaccine (1 of 2) 1962 DTaP/Tdap/Td Vaccine (1 - Tdap) 10/16/2004 5 Well Visit 65+ 2008 Influenza Vaccine (#1) 2025 4, 06/12/2019, 06/14/2018, Additional history exists Pneumococcal vaccine 65+ Completed 017, 04/07/2016, 10/15/2008 Procedures Procedure Name Priority Date/Time Associated Diagnosis Comments ECG 12-LEAD Routine 04/09/2025 1:00 PM CDT Chronic atrial fibrillation (HCC) from Last 3 Months Results * ECG 12 lead (04/09/2025 1:00 PM CDT) Scout Griffith MD ECG ORDERABLES Edited R esult - Final from Last 3 Months Insurance MEDICARE [facility] [place] [address] MEDIC[place] [address] MEDICARE [employer] [place] [employer] Care Teams Central Processing Tech Relationship Specialty Start Date End Date Pollo Lindquist MD [address] [place] [address] PCP - General Family Medicine 03/27/24
--- OUTSIDE RECORDS SUMMARY | 2025-07-04 16:05 | XMS_ITS | Encounter Summary ---
Author Organization [facility] Address [address] [place] [address] Care Team Providers Care Behavior Therapist Name Role Phone Kelvin Rosado MD Primary Care Provider [phone] Encounter Details Date Type Department Care Team (Late st Contact Info) Description 06/30/2023 Lab Requisition [facility] - Pathology Lab [address] [place] [address] Steve Kaba MD [address] [place] [address] Immunodeficiency, unspecified; Elevated white blood cell count, unspecified Social History Tobacco Use Types Packs/Day Years Used Date Smoking Tobacco: Never Alcohol Use Standard Drinks/Week Comments Yes 0 (1 standard drink = 0.6 oz pur e alcohol) Sex and Gender Information Value Date Recorded Sex Assigned at Not on file 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 - See interpretation. Correlation with clinical findings, the concurrent bone marrow core biopsy, and relevant cytogenetic/molecu lar studies is required. 06/30/2023 2:02 PM [facility] PATHOLOGY LAB at 1402 CDT Flow Cytometry Interpretation Viability: 91% Lymphocytes (4%): B-cells: polytypic, kappa:lambda ratio 2:1 T-cells: no immunophenotypic aberrancy detected Blasts in the dimCD45 gate (2% all events) by CD34 co-expression are detected, 0.6% of all events, express CD13 and CD33. A bone marrow aspirate smear prepared from the flow cytometry specimen has been reviewed for quality intern purposes. 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 06/30/2023 2:02 PM [facility] PATH[facility] Client Specimen ID # [id number] 06/30/2023 2:02 PM [facility] Number of markers 10 were performed. A-2 Flow CD10 A-3 Flow CD13 A-5 Flow CD20 A-1 Flow CD5 A-4 Flow CD19 A-6 Flow CD33 A-7 Flow CD34 A-8 Flow CD45 A-9 Badger+CD19+ A-10 Lambda+CD19+ 06/30/2023 2:02 PM [facility] PATH[facility] Pathologist Location at [facility] 06/30/2023 2:02 PM [facility] PATH[facility] Disclaimer Test performed at [facility], [address] [place] [address], [address]. *The established laboratory minimum viability is 70%. [...] complexity clinical testing. 06/30/2023 2:02 PM CDT [facility] PATH[facility] Embedded Images 2:02 PM CDT [facility] PATH[facility] Pathology/Cytolo gy BONE MARROW SPECIMEN / Unknown 06/30/2023 9:00 AM CDT 06/30/2023 12:29 PM CDT Steve Kaba MD LAB - PATHOLOGY/CYT OLOGY ORDERABLES Final Result Performing Organization Address City/[facility] de Phone Number [facility] PATH[facility] LAB [address] [phone] documented in this encounter Visit Diagnoses Diagnosis Immunodeficiency, unspecified (HCC) Elevated white blood cell count, unspecified documented in this encounter Care Teams Behavior Therapist Relationship Specialty Start Date End Date Kelvin Rosado MD [address] [place] [address] PCP - General 07/01/16 documented as of this encounter
--- OUTSIDE RECORDS SUMMARY | 2025-07-04 16:05 | XMS_ITS | Clinical Summary ---
Author Organization [facility] uti[facility] Address [address] [place] [phone] Phone Care Team Providers Care Quality Control Lead Name Role Phone Leilani Talbot MD Primary Care Provider [phone] Allergies No known active allergies Medications calcitriol [...] Comments Blood Pressure 126/72 09/16/2021 4:13 PM SAMPLE SEWER Pulse 72 09/16/2021 4:13 PM SAMPLE SEWER Temperature 36.2 C (97.1 F) 09/16/2021 4:13 PM SAMPLE SEWER Respiratory Rate - - Oxygen Saturation - - Inhaled Oxygen Concentration - - Weight 92.1 kg (203 lb) 09/16/2021 4:13 PM SAMPLE SEWER Height 185.4 cm (6' 1) 09/16/2021 4:13 PM SAMPLE SEWER Body Mass Index 26.78 09/16/2021 4:13 PM SAMPLE SEWER Plan of Treatment Health Maintenance Due Date Last Done Comments Pneumococcal PPSV23/PCV13 65 + Years / Low and Medium Risk (1 of 2 - PCV) 1993 Influenza Vaccine (#1) 2025 05/13/2021 Insurance [employer] MEDICARE SUPPLEMENT [facility] [id number] Care Teams Quality Control Lead Relationship Specialty Start Date End Date Leilani Talbot MD [address] [place] [address] PCP - General Internal Medicine 09/03/21
--- OUTSIDE RECORDS SUMMARY | 2025-07-04 16:05 | XMS_ITS | Clinical Summary ---
Author Organization [facility] Abelmassielnancy Villa Address [address] [facility] [address] Care Team Providers Care Salesperson Shoes Name Role Phone Pollo Lindquist MD Primary Care Provider [phone] Allergies No known active allergies Medications levothyroxine [...] by mouth daily. 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) 06/14/2025 11:30 AM CDT Office Visit [facility] Oncology and Hematology - [place] [address] [place] [address] Kole Hermosillo MD 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) (Primary Dx) 06/12/2025 Orders Only [facility] Oncology and Hematology - [place] [address] [place] [address] Kole Hermosillo MD 06/10/2025 Orders Only [facility] Oncology and Hematology - [place] [address] [place] [phone] Kole Hermosillo MD 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) 05/27/2025 Orders Only [facility] Oncology and Hematology - [place] [address] [place] [address] Kole Hermosillo MD 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) 05/21/2025 External Device Data STL ABSTRACTION Provider, Abstract 05/21/2025 External Device Data STL ABSTRACTION Provider, Abstract 05/21/2025 External Device Data STL ABSTRACTION Provider, Abstract 05/17/2025 11:00 AM CDT Office Visit [facility] Oncology and Hematology - [place] [address] [place] [address] Bernadette Serna MD 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) (Primary Dx) 05/15/2025 Orders Only [facility] Oncology and Hematology - [place] [address] [place] [address] Kole Hermosillo MD 05/13/2025 Orders Only [facility] Oncology and Hematology - [place] [address] [place] [address] Kole Hermosillo MD 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) 04/30/2025 External Device Data STL ABSTRACTION Provider, Abstract 04/30/2025 External Device Data STL ABSTRACTION Provider, Abstract 04/29/2025 Orders Only [facility] Oncology and Hematology - [place] [address] [place] [phone] Kole Hermosillo MD 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) 04/17/2025 2:00 PM CDT Office Visit [facility] Oncology and Hematology [facility] [address] [place] [phone] Kole Hermosillo MD 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) (Primary Dx) 04/17/2025 External Device Data STL ABSTRACTION Provider, Abstract 04/16/2025 Orders Only [facility] Oncology and Hematology [facility] [address] [place] [address] Kole Hermosillo MD from Last 3 Months Family History Relation [...] on file 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 Gender Identity Not on file Sexual Orientation Not on file Last Filed Vital Signs Vital Sign Reading Time Taken Comments Blood Pressure 102/67 06/14/2025 11:37 AM CDT Pulse 85 06/14/2025 11:37 AM CDT Temperature 36 C (96.8 F) 06/14/2025 11:37 AM CDT Respiratory Rate 16 06/14/2025 11:37 AM CDT Oxygen Saturation 98% 06/14/2025 11:37 AM CDT Inhaled Oxygen Concentration - - Weight 79.9 kg (176 lb 3.2 oz) 06/14/2025 11:37 AM CDT Height 182.9 cm (6') 06/15/2023 3:12 PM CDT Body Mass Index 23.9 06/15/2023 3:12 PM CDT Plan of Treatment Upcoming Encounters Date Type Department Care Team (Late st Contact Info) Description 07/08/2025 2:00 PM CDT Office Visit [facility] Oncology and Hematology - [place] [address] [place] [address] Kole Hermosillo MD [address] [facility] [place] [address] Health Maintenance Due Date Last Done Comments DTAP/TDAP/TD VACCINES (1 - Tdap) 1964 PNEUMOCOCCAL VACCINE 50+ YEA RS (1 of 2 - PCV) 1962 ZOSTER VACCINE (1 of 2) 1962 RSV VACCINE (60+ or ) (1 - 1-dose 75+ series) 2018 INFLUENZA VACCINE (#1) 2025 , 08/11/2023, 05/13/2021 Procedures Procedure Name Priority Date/Time Associated Diagnosis Comments COMPREHENSIVE METABOLIC PANEL Routine 06/10/2025 12:50 PM CDT BASIC METABOLIC PANEL Routine 06/10/2025 12:39 PM CDT BASIC METABOLIC PANEL Routine 05/14/2025 12:44 PM CDT COMPREHENSIVE METABOLIC PANEL Routine 05/14/2025 12:43 PM CDT COMPREHENSIVE METABOLIC PANEL Routine 04/15/2025 11:36 AM CDT BASIC METABOLIC PANEL Routine 04/15/2025 10:37 AM CDT CBC WITH AUTODIFFERENTIAL Routine 2024 9:40 AM CDT from Last 3 Months Results * COMPREHENSIVE METABOLIC PANEL (06/10/2025 12:50 PM CDT) Only the most recent of3 resultswithin the time period is included. Blood us Kole Hermosillo MD CHEMISTRY ORDERABLES Final Resu lt * BASIC METABOLIC PANEL (06/10/2025 12:39 PM CDT) Only the most recent of3 resultswithin the time period is included. Blood Kole Hermosillo MD CHEMISTRY ORDERABLES Final Resu lt * CBC WITH AUTODIFFERENTIAL (04/15/2025 9:40 AM CDT) Blood us Kole Hermosillo MD HEMATOLOGY ORDERABLES Final Res ult from Last 3 Months Insurance MEDICARE PART A AND B [facility] Care Teams Salesperson Shoes Relationship Specialty Start Date End Date Pollo Lindquist MD [address] [place] [address] PCP - General Family Practice 06/15/23
--- OUTSIDE RECORDS SUMMARY | 2025-07-04 16:05 | XMS_ITS | Clinical Summary ---
Author Organization [facility] Address [address] [place] [address] Care Team Providers Care Middleware Developer Name Role Phone Kelvin Rosado MD Primary Care Provider [phone] Source Comments [facility],non-owned Affiliates and Associated Physician Practices is amultiple site organization consisting of ambulatory clinics and hospital sitesin [place], [place], [place] and [place]. This disclosure is being madepursuant to the Care Everywhere program and may not contain all information available regarding this patient. 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 Gender Identity Not on file Sexual Orientation Not on file Last Filed Vital Signs Vital Sign Reading Time Taken Comments Blood Pressure 115/86 09/28/2016 8:47 AM GENERATING STATION MECHANIC Pulse 81 09/28/2016 8:47 AM GENERATING STATION MECHANIC Temperature - - Respiratory Rate - - Oxygen Saturation 96% 09/28/2016 8:47 AM GENERATING STATION MECHANIC Inhaled Oxygen Concentration - - Weight 102.1 kg (225 lb) 09/28/2016 7:16 AM GENERATING STATION MECHANIC Height 185.4 cm (6' 1) 09/28/2016 7:16 AM GENERATING STATION MECHANIC Body Mass Index 29.69 09/28/2016 7:16 AM GENERATING STATION MECHANIC Plan of Treatment Health Maintenance Due Date Last Done Comments MEDICARE AWV 12 MONTHS 1945 DTAP/TDAP/TD VACCINES (1 - Tdap) 1962 PNEUMOCOCCAL VACCINE 50+ (1 of 1 - PCV) 1993 ZOSTER VACCINE (1 of 2) 1993 Respiratory Syncytial Virus (RSV) Vaccine Pt: or over 60 yrs (1 - 1-dose 75+ series) 2018 DEPRESSION SCREENING 09/12/2024 COVID-19 VACCINE (1 - 2023-2 5 season) 2025 INFLUENZA VACCINE (#1) 2025 HEPATITIS B VACCINE Aged Out No [...] patient's age to complete this topic Insurance [facility] MEDICARE Care Teams Middleware Developer Relationship Specialty Start Date End Date Kelvin Rosado MD [address] [facility] [place] [address] PCP - General 07/01/16
== END 2025-07-04 15:00 | disposition home or self-care (01) ==
PROVIDERS: PCP Family Medicine; Visit Provider Internal Medicine Nephrology
DX: I48.91 Unspecified atrial fibrillation (principal); N18.4 Chronic kidney disease, stage 4 (severe)
CPT/HCPCS: 36415; 80069; 82570; 83970; 84156; 85027; 85055